=== PATIENT | female | born 1980 | race Caucasian/White ===

== ENCOUNTER → 2018-09-07 07:00 | Outpatient (CLI) | payer OTHER, SELFPAY ==
--- NOTE | 2018-09-07 07:00 | BI_ITS ---
MAMMOGRAPHY - BILATERAL SCREENING REASON FOR EXAM: Female, 38 years old. Routine annual screening examination. PERTINENT HISTORY: Non-contributory. TECHNIQUE: Digital bilateral breast alexa (3D mammographic acquisition) in the CC and MLO projections. 2-D mediolateral oblique (MLO) and craniocaudad (CC) views of both breasts were obtained. CAD: Full Field Digital Mammography with Computer Added Detection was performed. COMPARISON: None. Baseline examination. FINDINGS: Breast Composition: There are scattered areas of fibroglandular density. There are no dominant masses or suspicious calcifications. No other significant abnormalities are identified. BI/SCREENING MAMM (CAD), BILAT IMPRESSION: Negative screening mammogram. Yearly followup mammogram recommended. (A) ASSESSMENT CATEGORY: BIRADS Category 1: Negative. A letter regarding these results will be sent to the patient by the facility within 30 days. Approximately 10% of breast cancers are not detected by mammography. A normal mammogram should not delay biopsy of a clinically suspicious abnormality. [id number] Electronically Signed: Ciro Mott MD at 9:04 EST Tel [phone], Service support ,
--- OUTSIDE RECORDS SUMMARY | 2018-10-24 05:36 | XMS RPT_ITS ---
:1980 Author Organization OHIP Care Team Providers Name Role Phone Jeane Fleming Attending Unavailable Héctor Wood Referring Unavailable Jeane Fleming Attending Unavailable Héctor Wood Referring Unavailable [facility] Employee Attending Unavailable Jeane Fleming Attending Unavailable Héctor Wood Primary Care Unavailable Jeane Fleming Attending Unavailable Héctor Wood Referring Unavailable PROBLEMS PROBLEMS DATE TYPE CONDITION / CODE ATTENDING STATUS SOURCE 10/12/2018 Unknown Z12.31 - Encounter BernadetteJeane Active [place]ri[place] for screening [facility] mammogram for [facility] malignant neoplasm Repository of breast / Z12.31(ICD-10) 07/14/2018 Unknown N39.0 - Urinary Bernadette, Jeane Active [place] tract infection, Community site not specified Hospital / N39.0(ICD-10) Repository 07/14/2018 Unknown R30.0 - Dysuria / Bernadette, Jeane Active Shahriar R30.0(ICD-10) [facility] Repository 06/24/2018 Unknown Z01.411 - Encounter [place] Active [place] for gynecological [facility] examination Hospital (general) (routine) Repository with abnormal findings / Z01.411(ICD-10) 06/24/2018 Unknown N92.0 - Excessive Bernadette, Jeane Active [place] and frequent Community menstruation with Hospital regular cycle / Repository N92.0(ICD-10) PROCEDURES PROCEDURES No Procedure Records FoundRESULTS RESULTS HOOP PUNCHER OFFICE VISIT Observed: 10/11/2018 Status: F Source: SHAHRIAR REPORT 4:31 PM [facility] REPOSITORY [facility] [address] [place] [address]. [address] [place] [address] OFFICE VISIT Date of Service: 06/24/18 MR#: [id number] Acct: [id number] Name: ESTEBAN BALL Rep #: [id number] : 1980 Provider: JAYLON Fleming Age/Sex: 38/F Location: [facility] Status: Signed with Addenda ADDENDUM by JAYLON Fleming on 10/11/18 at 1631 Addendum entered and electronically signed by HEATH Frank 10/11/18 16:31: Rectal exam was deferred. No masses palpated Assessment AND Plan Problems 1. Encounter for gynecological examination with abnormal finding Z01.411 2. Menorrhagia with regular cycle N92.0 Plan - HEATH Frank Completed breast and pelvic exam Reviewed diet and exercise Pap 2015 Mammogram ordered Contraception essure Change OCP to sprintec. Call after 3 months if heavy menses persist. Declines IUD. Would consider ablation. YVETTE BV and call only if positive RTO 1 year, prn with problems Jeane Fleming MICROELECTRONICS TECHNICIAN Orders Orders: Medications New: 10/11/18 1631 <Electronically signed by Jeane JOE> Date Jeane Fleming cc: * Signed Intake Vital Signs06/24/18 Height 5 ft 8 in 06/24/18 Weight: 196 lb 06/24/18 Body Mass Index (BMI) 29.7 06/24/18 Blood Pressure 136/92 H Intake Visit Reasons: ANNUAL Rabbet Operator Required: No Is patient in pain?: No Allergies No Known Allergies Allergy (Verified 06/24/18 13:26) Medications Lisdexamfetamine Dimesylate [Vyvanse] 70 mg PO DAILY 08/24/13 [History Confirmed 06/24/18] Escitalopram Oxalate [Lexapro] 20 mg PO DAILY #14 tab 08/01/15 [Rx Confirmed 06/24/18] bupropion HCl XL 300 mg 24 hr tablet, extended release 350 mg PO DAILY tab 06/24/18 [History Confirmed 06/24/18] norgestimate 0.25 mg-ethinyl estradiol 35 mcg tablet 1 tab PO QDAY #84 tab 06/24/18 [Rx Confirmed 06/24/18] Is last menstrual period known: No Post menopausal: No Patient : No : No PFSH Medical History Depression (Acute) ADHD (Acute) Surgical History Cubital tunnel syndrome on right (Resolved) History of removal of skin mole (Resolved) Family History Mother CVA (cerebral vascular accident) Hypertension Father Hyperlipidemia Melanoma Social History Smoking Status: Never smoker alcohol intake: current alcohol intake frequency: holidays/special occasions only substance use type: does not use caffeine: Yes what type of physical activity do you participate in: none seatbelt use: always do you feel safe at home: Yes additional social history: [employer]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 DatName GA/WeeksOutcome Route [facility] LocaProviderFOB e ht en ia tn Unknown Desiree-1 997 Unknown Radha -2002 HPI ANNUAL: Details: ESTEBAN BALL is a 38 year old who presents for annual exam. States menses slightly better with Aviane but will with clotting. [place] in amount of days. Also notes increased vaginal discharge Last PAP: 2016 History of abnormal PAP: no Last mammogram: baseline ordered Female Reproductive History Questions: Metorrhagia: Yes, Sexually active: Yes, Dyspareunia: No, PCB: No ROS Const Constitutional: Denies fatigue, weight gain or weight loss Cardio Card: Denies chest pain Resp Resp: Denies cough or shortness of breath with activity GI GI: Denies abdominal pain, constipation, change in stools, vomiting or bloating : Reports as per HPI; denies urinary frequency, pelvic pain, urinary urgency, vaginal discharge, vaginal itching, urinary incontinence or difficulty urinating Exam Const General: cooperative, healthy appearing, no acute distress, well developed Orientation: alert, oriented to person, oriented to place HENGA Head: normal to inspection Neck Neck: normal visual inspection Thyroid: thyroid normal Lymphatic: no lymphadenopathy noted Chest Breast inspection: normal inspection of the breasts, normal inspection of the axillae Breast palpation: normal palpation of the breasts, normal palpation of the axillae, no axillary lymphadenopathy Resp Effort AND Inspection: normal respiratory effort Auscultation: clear to auscultation bilaterally Cardio Rate: regular rate Rhythm: regular rhythm GI Palpation: soft, nontender, no masses Rectal Exam: mass, deferred External Female Exam: normal external appearance, normal appearance of the urethra Urethra: normal appearance of the urethra, normal palpation Speculum Exam - Vagina: normal appearance of the vagina, normal vaginal discharge Speculum Exam - Cervix: normal appearance of the cervix (YVETTE BV) Bimanual Exam- Vagina AND Uterus: normal bimanual exam, uterine size normal, uterine shape normal, uterus non-tender Bimanual Exam- Adnexa, other: normal adnexae, no adnexal masses, adnexae non-tender, pelvic support normal Pelvic Support: normal Neuro General: alert, oriented x3 Psych Affect: normal affect Assessment AND Plan Problems 1. Encounter for gynecological examination with abnormal finding Z01.411 2. Menorrhagia with regular cycle N92.0 Plan Completed breast and pelvic exam Reviewed diet and exercise Pap 2016 Mammogram ordered Contraception essure Change OCP to sprintec. Call after 3 months if heavy menses persist. Declines IUD. Would consider ablation. YVETTE BV and call only if positive RTO 1 year, prn with problems Jeane Fleming MICROELECTRONICS TECHNICIAN Orders Orders: Medications New: Coding Level of Care Code Off vis,est,prev 40-64yrs Diagnoses Encounter for gynecological examination with abnormal finding Z01.411 Gynecological examination findings: abnormal findings PRESENT Menorrhagia with regular cycle N92.0 Menorrahagia type: with regular cycle 06/24/18 1419 <Electronically signed by Jeane JOE> Date Jeane HERNANDEZC Cosigner Signature: Date (if applicable) CC: SCREENING MAMM (CAD), Observed: 09/07/2018 Status: F Source: SHAHRIAR [place] 6:57 AM [facility] REPOSITORY [facility] Imaging Services [address] [place] [address] SCREENING MAMM (CAD), BIL MR#: [id number] Acct: [id number] Name: ESTEBAN BALL Rep #: [id number] : 1980 F 38 From: Ciro Mott MD PCP: Héctor Wood MD Status: REG CLI Study: SCREENING MAMM (CAD), BILAT Date of Exam: 09/07/18 Exam# [id number] Ordering Dr: Jeane Fleming MAMMOGRAPHY - BILATERAL SCREENING REASON FOR EXAM: Female, 38 years old. Routine annual screening examination. PERTINENT HISTORY: Non-contributory. TECHNIQUE: Digital bilateral breast alexa (3D mammographic acquisition) in the CC and MLO projections. 2-D mediolateral oblique (MLO) and craniocaudad (CC) views of both breasts were obtained. CAD: Full Field Digital Mammography with Computer Added Detection was performed. COMPARISON: None. Baseline examination. FINDINGS: Breast Composition: There are scattered areas of fibroglandular density. There are no dominant masses or suspicious calcifications. No other significant abnormalities are identified. BI/SCREENING MAMM (CAD), BILAT IMPRESSION: Negative screening mammogram. Yearly followup mammogram recommended. (A) ASSESSMENT CATEGORY: BIRADS Category 1: Negative. A letter regarding these results will be sent to the patient by the facility within 30 days. Approximately 10% of breast cancers are not detected by mammography. A normal mammogram should not delay biopsy of a clinically suspicious abnormality. [id number] Electronically Signed: Ciro Mott MD at 9:04 EST Tel [phone], Service support , CC: JAYLON Fleming; Héctor Wood MD Adult Psychiatrist: Signed OFFICE VISIT REPORT Observed: 08/03/2018 Status: F Source: SHAHRIAR 3:45 PM [address] [place] [address] OFFICE VISIT Date of Service: 07/14/18 MR#: [id number] Acct: [id number] Patient: ESTEBAN BALL Rep #: [id number] : 1980 Provider: JAYLON Fleming Age/Sex: 38/F Location: [facility] Status: Signed Intake Vital Signs07/14/18 Height 5 ft 8 in Intake Visit Reasons: Urinary tract infection Rabbet Operator Required: No Is patient in pain?: Yes (Dysuria) Allergies No Known Allergies Allergy (Verified 07/14/18 13:32) Medications Lisdexamfetamine Dimesylate [Vyvanse] 70 mg PO DAILY 08/24/13 [History Confirmed 06/24/18] Escitalopram Oxalate [Lexapro] 20 mg PO DAILY #14 tab 08/01/15 [Rx Confirmed 06/24/18] bupropion HCl XL 300 mg 24 hr tablet, extended release 350 mg PO DAILY tab 06/24/18 [History Confirmed 06/24/18] norgestimate 0.25 mg-ethinyl estradiol 35 mcg tablet 1 tab PO QDAY #84 tab 06/24/18 [Rx Confirmed 06/24/18] ciprofloxacin 500 mg tablet 250 mg PO BID #6 tab 07/14/18 [Rx Confirmed 07/14/18] Post menopausal: No Patient : No Nurse's Note: Patient presents for dysuria. Clean catch obtained. + 10 dip back office. Per Jeane Fleming MICROELECTRONICS TECHNICIAN, ATB sent to [facility] pharmacy. Assessment AND Plan 1. Acute cystitis with hematuria N30.01 Plan Rx cipro Plan Detail Other Orders Orders: Other Medications New: 08/03/18 1545 <Electronically signed by Jeane Fleming NP-C> Date Jeane Fleming ICT TEACHER-C Cosigner Signature: Date (if applicable) CC: CBC W/DIFF, AUTOMATED Collected: 11/23/2017 Status: F Source: [place] 8:05 AM [facility] REPOSITORY TYPE CODE TESTS RESULT OUT OF RANGE REFERENCE UNITS LAB L100.1000 4.4-11.0 K/mm3 Normal WBC 6.6 LAB L100.1200 4.2-5.4 M/mm3 Normal RBC 4.58 LAB L100.1300 12.0-15.0 g/dl Normal HGB 13.6 LAB L100.1400 37-47 % Normal HCT 42.4 LAB L100.1500 81-99 fL Normal MCV 92.6 LAB L100.1600 27.0-32.0 pg Normal MCH 29.7 LAB L100.1700 32-36 g/gl Normal MCHC 32.1 LAB L100.1810 11.6-14.6 % Normal RDW CV 13.6 LAB L100.1820 35.1-43.9 fl High RDW SD 45.6 LAB L100.1900 150-450 K/mm3 Normal PLT 324 LAB L100.2000 6.2-12.0 fl Normal MPV 10.4 LAB L100.2100 47-70 % Normal NEUT% 59.2 LAB L100.2200 19-41 % Normal LY% 29.5 LAB L100.2300 0-10 % Normal MONO% 4.4 LAB L100.2400 0-5 % High EO% 6.5 LAB L100.2500 0-1 % Normal BASO% 0.2 LAB L100.2550 0.0-0.9 % Normal IM GRAN % 0.200 Result Comment: IG% - Immature Granulocytes (promyelocytes, myelocytes and metamyelocytes) > 1% indicates that a LEFT SHIFT is Present. LAB L100.2620 2.0-7.7 X10 3/uL Normal Absolute Neut 3.9 LAB L100.2720 0.83-4.51 X10 3/ul Normal Absolute Lymph 1.94 Performed By: #### L100.0100 #### [facility] [address] [place], [address] URINALYSIS, ROUTINE Collected: 11/23/2017 Status: F Source: SHARHIAR (DIPSTICK) 8:05 AM [facility] REPOSITORY Order Comment: How was Urine Obtained? CLEAN CATCH TYPE CODE TESTS RESULT OUT OF RANGE REFERENCE UNITS LAB L400.3000 Yellow COLOR Normal Yellow LAB L400.3050 Clear Normal CLARITY Sl. Cloudy LAB L400.3200 Normal mg/dl Normal GLUCOSE, UR Normal LAB L400.3300 Negative mg/dL Normal BILIRUBIN URINE Negative LAB L400.3400 Negative mg/dl Normal KETONE UR Negative LAB L400.3465 1.002-1.030 Normal SP.GR. DIPSTX 1.020 LAB L400.3550 5.0 - 8.0 pH UR Normal 6.0 LAB L400.3600 Negative mg/dl High PROT 15 DIPSTX LAB L400.3700 Normal mg/dl Normal UROBILI Normal LAB L400.3750 Negative Normal NITRITE UR Negative LAB L400.3780 Negative /ul High 25 OCCULT BLOOD-UR LAB L400.3800 Negative /ul High LEUK ESTERASE 500 Performed By: #### L400.2010 #### [facility] [address] [place], [address] COMPREHENSIVE METABOLIC Collected: 11/23/2017 Status: F Source: SHAHRIAR [facility] 8:05 AM [facility] REPOSITORY TYPE CODE TESTS RESULT OUT OF RANGE REFERENCE UNITS LAB L501.0100 74-106 mg/dL Normal GLU 77 Result Comment: Please note revised GLUCOSE reference range effective 2017. LAB L501.1000 7-18 mg/dL Normal BUN 10 LAB L501.1100 0.55-1.02 mg/dL Normal CREAT,SERUM 0.65 Result Comment: The validity of the calculated GFR AND GFRAA in patients over 70 years has not been determined. Clinical correlation is essential. LAB L501.1110 >60 mL/min Normal EST GFR 107 Result Comment: Non- GFR Calc LAB L501.1115 >60 mL/min Normal EST GFR - AA 130 Result Comment: GFR Calc LAB L501.1300 10-20 RATIO Normal BUN/CRE 15.3 LAB L501.1500 6.4-8.2 g/dL T Normal PROT 7.9 LAB L501.1800 3.2-5.0 g/dL Normal ALB 3.4 LAB L501.1950 2.2-4.2 g/dL High GLOB 4.5 LAB L501.2000 0.9-2.4 RATIO Low A/G 0.8 LAB L501.2200 8.5-10.1 mg/dL CA Normal 8.5 LAB L501.4100 15-37 U/L Low AST 12 LAB L501.4305 45-117 U/L Normal ALK P 90 LAB L501.4405 13-56 U/L Normal ALT 23 Result Comment: Please note revised ALT reference range effective 2017. LAB L501.4600 0.20-1.00 mg/dL Normal T BILI 0.40 LAB L501.5300 136-145 mmol/L Normal NA 140 LAB L501.5600 3.5-5.1 mmol/L Normal K 3.6 LAB L501.5900 98-107 mmol/L High CL 108 LAB L501.6100 21.0-32.0 mmol/L Normal CO2 26.0 LAB L501.6200 5-15 Normal GAP 6 Performed By: #### L500.4050, L500.4100 #### [facility] [address] [place], [address] LIPID PROFILE Collected: 11/23/2017 Status: F Source: SHAHRIAR 8:05 AM [facility] REPOSITORY TYPE CODE TESTS RESULT OUT OF RANGE REFERENCE UNITS LAB L501.4900 200 mg/dL High CHOL 219 Result Comment: <200 mg/dL Desirable 200-240 mg/dL Borderline >240 mg/dL High Risk LAB L501.5000 mg/dL High TRIG 222 Result Comment: The drugs N-Acetylcysteine and Metamizole may falsely depress this assay. Serum Triglycerides Reference Interval Normal <150 mg/dL Borderline high 150 - 199 mg/dL High 200 - 499 mg/dL Very High > or = 500 mg/dL LAB L501.6400 mg/dL Low HDL 39 Result Comment: The drugs N-Acetylcysteine and Metamizole may falsely depress this assay. Reference Range HDL <40 mg/dL Low HDL Cholesterol HDL >or= 60 mg/dL High HDL Cholesterol LAB L501.6500 0-130 mg/dL High LDL 136 LAB L501.6600 5-40 mg/dL High VLDL 44 Performed By: #### L500.4050, L500.4100 #### [facility] [address] [place], [address] ALLERGIES ALLERGIES DATE TYPE / CODE NAME / CODE REACTION SEVERITY SOURCE 07/14/2018 Drug No Known Unknown [facility] Allergy/4160 Allergies/F00 Hospital 80777(SNOMED 4597155(RXNOR Repository CT) M) ENCOUNTERS ENCOUNTERS ADMIT/DISCHARGE ACCOUNT ADMITTING ENCOUNTER LOCATION SOURCE NUMBER CLASS 09/07/2018 [id number] Ambulatory [place] 5 [facility] ing:OPBI Repository 07/14/2018/ [id number] Ambulatory BMSBuilding:B [place] 8 0 [facility] Repository 06/24/2018/ [id number] Ambulatory BMSBuilding:B [place] 8 8 [facility] Repository 01/28/2018 [id number] Ambulatory BMSBuilding:B Shahriar 9 [facility] Repository 11/23/2017 [id number] Ambulatory [place] 2 [facility] ing:OLS.[facility] Repository PAYERS PAYERS ENCOUNTER GUARANTOR PAYER SUBSCRIBER SOURCE 09/07/2018 ESTEBAN L Primary ESTEBAN L [place] [id number] Insurance:AETNAPolicy WAYDOB: [facility] [place] Number: [id number] [id number] Repository [address]Zaf: (330) Date:0149-04-23AD [phone] () [id number] LUCAS PALM [id number]: 09/07/2018 Secondary NOT GIVENUNK Shahriar Insurance:SELF PAY [facility] Number: Effective Repository Date:2018-06-30 07/14/2018 ESTEBAN L Primary ESTEBAN L [place] [id number] Insurance:AETNAPolicy [facility] [place]: [id number] [id number] Repository [address]Dqp: (330) Date:8182-40-28EF [phone] () [id number] LUCAS PALM [id number]: 07/14/2018 Secondary NOT GIVENUNK [place] Insurance:SELF PAY [facility] Number: Effective Repository Date:2018-07-14 06/24/2018 ESTEBAN L Primary ESTEBAN L [place] [id number] Insurance:AETNAPolicy WAYDOB: [facility] Number: [id number] [id number] Repository [address]Ors: (330) Date:6697-31-48GD [phone] () [id number] LUCAS PALM [id number]: 06/24/2018 Secondary NOT GIVENUNK [place] Insurance:SELF PAY [facility] Number: Effective Repository Date:2018-06-24 01/28/2018 Esteban L Primary Esteban L [place] [id number] Insurance:AETNAPolicy WayDOB: [facility] [place] Number: [id number] [id number] Repository [address]Usl: (330) Date:1190-22-43JE [phone] () [id number] LUCAS PALM [id number]: 01/28/2018 Secondary NOT GIVENUNK [place] Insurance:SELF PAY [facility] Number: Effective Repository Date:2018-01-26 11/23/2017 Esteban L Primary NOT GIVENUNK [place] [id number] Insurance:SELF PAY [place] Number: Effective Repository [id number]: (330) Date:2017-11-23 [phone] ()
== END ==
PROVIDERS: Family Provider Family Medicine; PCP Family Medicine; Visit Provider Nurse Practitioner Women's Health
DX: Z12.31 Encounter for screening mammogram for malignant neoplasm of breast (principal)
CPT/HCPCS: 77063; 77067

== ENCOUNTER → 2018-10-26 17:51 | Outpatient (CLI) | payer OTHER, SELFPAY ==
[2018-10-26 09:02] VITALS: BMI 30.2
== END ==
PROVIDERS: Family Provider Family Medicine; PCP Family Medicine; Referring Provider Nurse Practitioner Women's Health; Visit Provider Nurse Practitioner Women's Health
DX: R10.2 Pelvic and perineal pain (principal)
CPT/HCPCS: 87070; 87205

== ENCOUNTER → 2018-11-01 07:55 | Outpatient (CLI) | payer OTHER, SELFPAY ==
[2018-10-26 09:02] VITALS: BMI 30.2
--- NOTE | 2018-11-01 07:58 | US_ITS ---
STUDY: ULTRASOUND OF THE FEMALE PELVIS - COMPLETE REASON FOR EXAM: Female, 38 years old. Left-sided pelvic pain. Abnormal bleeding. History of ESSURE placement. LMP: October 15, 2018. TECHNIQUE: Transabdominal and Transvaginal TECHNICAL QUALITY: Adequate. COMPARISON: None. FINDINGS: The uterus is anteverted and is in a midline position. The uterus measures 8.4 cm x 5.0 cm x 4.1 cm. There is a Nabothian cyst of the cervix. The endometrium measures 4.0 mm in thickness, and is hyperechoic. There is no demonstrated endometrial mass. There is no demonstrated myometrial mass. I.U.D. - The patient does not have an I.U.D. The right ovary is visualized. The right ovary measures 2.6 cm x 2.4 cm x 1.1 cm. Follicles are seen within the ovary. There is no visualized right adnexal mass or complex lesion. There is normal arterial and normal venous vascularity. The left ovary is visualized. The left ovary measures 2.2 cm x 1.9 cm x 1.4 cm. Follicles are seen within the ovary. There is no visualized left adnexal mass or complex lesion. There is normal arterial and normal venous vascularity. There is no fluid in the cul-de-sac. The pre void volume of the bladder was 13 ml. Polycystic ovary disease: No. US/Transvaginal Non- IMPRESSION: Normal female pelvis. Electronically Signed: Ciro Mott MD at 14:12 EST , Service support ,
== END ==
PROVIDERS: Family Provider Family Medicine; PCP Family Medicine; Referring Provider Nurse Practitioner Women's Health; Visit Provider Nurse Practitioner Women's Health
DX: R10.2 Pelvic and perineal pain (principal)
CPT/HCPCS: 76830; 93976

== ENCOUNTER 2018-12-30 08:22 | Day surgery (SDC) | payer OTHER, SELFPAY ==
[2018-10-26 09:02] VITALS: BMI 30.2
[2018-12-07 11:46] VITALS: BMI 30.2
[2018-12-27 08:01] LABS: Hematocrit 44.5 % (37-47); Hemoglobin 14.8 g/dl (12.0-15.0); Mean Corp Hgb Conc 33.3 g/gl (32-36); Mean Corpuscular Hgb 29.6 pg (27.0-32.0); Mean Platelet Vol. 9.8 fl (6.2-12.0); Platelet Count 330 K/mm3 (150-450); RBC Distribution Width CV 12.8 % (11.6-14.6); RBC Distribution Width SD 41.5 fl (35.1-43.9); White Blood Count 9.1 K/mm3 (4.4-11.0)
[2018-12-27 08:03] LABS: Scan Indicated on CBC? Y/N NO
[2018-12-27 08:27] LABS: AST(SGOT) 11 U/L (15-37); Alanine Aminotransfer ALT/SGPT 16 U/L (13-56); Albumin, Serum 3.5 g/dL (3.2-5.0); Alkaline Phosphatase 115 U/L (45-117); Bilirubin, Direct 0.11 mg/dL (0.00-0.30); Globulin 4.1 g/dL (2.2-4.2); Protein, Total 7.6 g/dL (6.4-8.2)
[2018-12-27 08:39] LABS: International Normalized Ratio 1.1; Prothrombin Time (Protime)PT. 13.7 SECONDS (11.7-14.9)
[2018-12-27 08:40] LABS: Partial Thromboplast Time 28.6 Seconds (24.1-36.2)
[2018-12-30] VITALS (14 sets, daily range): BP systolic 93–127; BP diastolic 58–77; PULSE 51–73; RESP 16–20; TEMP 36.4–37.2; O2SAT 97–100; BMI 29.5
--- NOTE | 2018-12-30 08:05 | HP.PCM_ITS ---
- Problem List (1) ADHD Status: Acute (2) Depression Status: Acute (3) Abnormal uterine bleeding Status: Chronic (4) Chronic female pelvic pain Status: Chronic Comment: plan TVH BS History and Physical Date of Admission: 12/30/18 Intake Vital Signs 12/07/18 Body Mass Index (BMI) 30.2 12/07/18 Height 5 ft 7 in 12/07/18 Weight: 194 lb 2 oz 12/07/18 Body Mass Index (BMI) 30.4 12/07/18 Blood Pressure 106/64 Intake Visit Reasons: pre op TVHBS ERAS Chief Complaint: Pre Op TVHBS ERAS Pension Examiner Required: No Is patient in pain?: No Allergies No Known Allergies Allergy (Verified 12/07/18 11:45) Medications Lisdexamfetamine Dimesylate [Vyvanse] 70 mg PO DAILY 08/24/13 [History Confirmed 12/07/18] Escitalopram Oxalate [Lexapro] 20 mg PO DAILY #14 tab 08/01/15 [Rx Confirmed 12/07/18] bupropion HCl XL 300 mg 24 hr tablet, extended release 350 mg PO DAILY tab 06/24/18 [History Confirmed 12/07/18] norgestimate 0.25 mg-ethinyl estradiol 35 mcg tablet 1 tab PO QDAY #84 tab 06/24/18 [Rx Confirmed 12/07/18] lisinopril 40 mg tablet 40 mg PO DAILY 12/07/18 [History Confirmed 12/07/18] Is last menstrual period known: No Post menopausal: No Patient : No : No [facility] Medical History Depression (Acute) ADHD (Acute) Encounter for Essure implantation (Acute) Hypertension (Chronic) Surgical History Cubital tunnel syndrome on right (Resolved) History of removal of skin mole (Resolved) Family History Mother CVA (cerebral vascular accident) Hypertension Father Hyperlipidemia Melanoma Social History Smoking Status: Never smoker alcohol intake: current alcohol intake frequency: holidays/special occasions only substance use type: does not use caffeine: Yes what type of physical activity do you participate in: none seatbelt use: always do you feel safe at home: Yes 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 She was referred for hysterectomy by Jeane Fleming for chronic pelvic pain. she samuels s had the essure in the past and also has AUB that is improved but not completely controlled with OCP and the patient wants to proceed with hysterectomy for definitive treatment, and wants tube and essure removal. Pregancy History 3 Elective abortions Hx Para 2 Spontaneous abortions Hx # Term Pregnancies Ectopic pregnancies Hx # Pregnancies Multiple births # of living children Past Pregnancies Del. Date Name GA/Weeks Outcome Route Bth Weight Infant Gen Labor Lgth Anesthesia Del Locatn Provider FOB Unknown Desiree-1996 Unknown Radha-2002 ROS Const Constitutional: Denies fatigue, fever(s), headache(s), increased appetite, poor appetite, weight gain or weight loss Cardio Card: Denies chest pain Resp Resp: Denies cough or dyspnea GI GI: Reports as per HPI; denies abdominal pain, constipation, nausea or vomiting : Reports as per HPI; denies difficulty urinating, painful urination, nipple discharge, urinary frequency, urinary incontinence, urinary hesitancy, urinary urgency, vaginal discharge, vaginal dryness, vaginal odor or vaginal itching Skin Skin/Breast: Denies change in hair, breast lump, breast pain, breast skin ch anges or nipple discharge Exam Const General: cooperative, healthy appearing, comfortable, no acute distress, well developed Nutritional Appearance: average body habitus Orientation: alert HENMT Head: normal to inspection, normocephalic Neck Neck: normal visual inspection, trachea midline Thyroid: thyroid normal Resp Effort & Inspection: normal respiratory effort GI Inspection: normal to inspection, non-distended Palpation: soft, no hepatosplenomegaly General: bladder normal to palpation External Female Exam: normal external appearance, normal appearance of the urethra Urethra: normal appearance of the urethra, normal palpation, no discharge Speculum Exam - Vagina: normal appearance of the vagina, normal vaginal discharge Speculum Exam - Cervix: normal appearance of the cervix, nontender Bimanual Exam- Vagina & Uterus: normal bimanual exam, uterine size normal, bladder normal to palpation, uterine shape normal, No cervical tenderness, uterine mobility normal, uterine consistency normal, normal cervical palpation, uterus non-tender Bimanual Exam- Adnexa, other: normal adnexae, adnexae mobile, no adnexal masses, pelvic support normal Pelvic Support: normal Skin General: no rashes or lesions noted Assessment & Plan Problems 1. Chronic female pelvic pain R10.2; G89.29 plan TVH BS 2. Abnormal uterine bleeding N93.9 Plan discussed surgical risks including risks of anesthesia, infection, bleeding, injury to bowel, bladder or blood vessels, and patient wishes to proceed with surgery. proceed with TVH BS Coding Level of Care Code No Charge Diagnoses Chronic female pelvic pain R10.2; G89.29 Abnormal uterine bleeding N93.9 UPDATE- I have seen the patient and performed any clinically relevant updates to the history and physical exam. Veronica Burch MD
[2018-12-30 08:48] LABS: Internal QC Validated? YES +Cl - CLEAR BKGD; Pregnancy, Urine Negative Negative
[2018-12-30 08:50] LABS: Bedside Glucose 70 mg/dL (70-110)
[2018-12-30] MEDS: Gabapentin 600 MG Tablet PO (08:55)
[2018-12-30] MEDS: Acetaminophen 500 MG Tablet 1000 MG PO ×2 (08:56→19:08)
[2018-12-30] MEDS: Celecoxib 200 MG Capsule 400 MG PO (08:56)
[2018-12-30] MEDS: Phenazopyridine 95 MG Tablet 190 MG PO (08:57)
[2018-12-30] MEDS: Scopolamine 1mg/72hr Patch 1 PATCH TRANSDERM. (08:57)
[2018-12-30] MEDS: Enoxaparin 40 MG/0.4 ML Syringe SC (08:58)
[2018-12-30] MEDS: Lactated Ringers 1,000 ML 40 ML IV (09:28)
[2018-12-30] MEDS: Magnesium Sulfate 4gm/100mL 4 GM/100 ML IV.SOLN. IV (09:29)
--- NOTE | 2018-12-30 10:35 | UT_PTH ---
PATIENT: ESTEBAN BALL LOC: [facility] U#:[id number] AGE/SX: 38/F ROOM: RE12/30/[address]: Dr. Veronica Burch MD : 1980 BED: DIS: 12/31/2018 SPEC #: [id number] RECD: 12/30/18 13:02 STATUS: BLANCA JUSTINE #: [id number] ELISABETH: 12/30/18 10:[address]: Veronica Burch DEPT: SURGICAL PATHOLOGY RECD BY: Simone Espitia ENTERED: 12/30/18 13:21 SP TYPE: UTERUS OTHR DR: Dr. Héctor Wood MD Tissues: Uterus, NOS Procedures: Surgery Specimen Level V HEADER OPERATION: ERAS, hysterectomy, vaginal, salpingectomy PRE-OP DIAGNOSIS: Chronic pelvic pain, abnormal uterine bleeding TISSUE SUBMITTED: Uterus and bilateral fallopian tubes MICROSCOPIC DIAGNOSIS Uterus and bilateral fallopian tubes, vaginal hysterectomy and salpingectomy: Cervix - chronic cervicitis. Endometrium - secretory pattern. Myometrium - adenomyosis with cystic change. Fallopian tubes - benign paratubal cysts. CE:kalee 12/31/18 MICROSCOPIC DESCRIPTION Slides are reviewed. GROSS DESCRIPTION Received in fixative is one container labeled with the patient's name and designated uterus and bilateral fallopian tubes. The specimen consists of a hysterectomy specimen consisting of uterus with cervix and detached bilateral fallopian tubes. The uterus with cervix weighs 89 gm and measures 9 x 6 x 4 cm. The serosal surface is walker, glistening. The ectocervical mucosa is unremarkable. The external os is oval and patulous in contour. The endocervical canal measures 3 cm in length and the endocervical mucosa is walker, glistening and unremarkable. Sections of the cervix reveal two cysts filled with mucoid material. The triangular endometrial cavity measures 4.5 cm in length and 3 cm in width. The endometrium is walker, glistening without any mass lesion and measures 0.1 cm in thickness. Sections of the uterine wall do not reveal any mass lesion and measures up to 2.5 cm in thickness. At both cornu, the uterus and proximal portion of the bilateral fallopian tubes are also noted and shows a coiled metallic device consistent with Essure device. The detached fallopian tubes are not identified as right or left. One of the fallopian tubes measure 7 cm in length and up to 1 cm in diameter. The fimbrial end is identified. A paratubal cyst is noted measuring 0.5 cm in greatest dimension. It s filled with clear fluid. The second fallopian tube measures 7 cm in length and up to 1 cm in diameter. It is similar appearance to the first one. Sections reveal unremarkable cut surfaces. Sections of one of the fallopian tube also reveals a coiled metallic device consistent with Essure device. Headlight Assembler sections are submitted in eight cassettes as follows: 1 - anterior cervix, 2 - posterior cervix, 3 & 4 - anterior uterine wall, 5 & 6 - posterior uterine wall, 7 & 8 - bilateral fallopian tubes with each cassette containing one fallopian tube. / VERA:kalee 12/30/18 TC:3 CPT: 36620
--- NOTE | 2018-12-30 10:44 | PCM.OPRPT ---
Problem List (1) ADHD Status: Acute (2) Depression Status: Acute (3) Abnormal uterine bleeding Status: Chronic (4) Chronic female pelvic pain Status: Chronic Comment: plan TVH BS Report of Operation Date of Procedure: 12/30/18 Pre-Operative Diagnosis: pelvic pain Post-Operative Diagnosis: same Surgery/Procedure Performed:: tv bs Description of Surgical Findings:: normal uterus nodular fibrosed tubes pharmacy clinical specialist: Lyn Mendez Type of Anesthesia:: General Specimen's removed: uterus tubes essure devices Drains: kolb Estimated Blood Loss (mL): 100 Fluids Replaced: crystalloid Description of Procedure: Patient was taken to the operating room and was placed under general anesthesia was prepped and draped in normal sterile fashion in the dorsal lithotomy position. Preoperative antibiotics and SCDs and Kolb catheter was placed inside the bladder. Weighted speculum was placed in the vagina and the anterior and posterior lip of the cervix was grasped with 2 Johny clamps and circumferentially injected with dilute vasopressin. A circumferential incision was made with a scalpel and the posterior cul-de-sac was entered into sharply and a longneck speculum was placed. The anterior cul-de-sac was also dissected down and entered into sharply and the uterosacral ligaments were clamped cut and suture ligated bilaterally followed by the cardinal ligaments which were Clamped cut and suture ligated bilaterally with 0 Monocryl. The uterus serially descended and progressive bites were taken bilaterally up to the level of the utero-ovarian ligament bilaterally which was clamped transected and double ligated with 0 Monocryl suture and 0 Vicryl free tie. Bilateral fallopian tubes and ovaries were well visualized and noted be within normal limits and the bilateral fallopian tubes were transected across the base with a Anuradha clamp and removed and sutured with 0 Vicryl suture. Excellent hemostasis was noted. Posterior peritoneum was reapproximated with 2-0 Vicryl and a modified Kitchen stitch was placed through the posterior vaginal cuff and bilateral uterosacral ligaments across the posterior cul-de-sac skimming along to provide apical support to the vagina. The vagina was closed with [id number] 0 Vicryl pop offs including the posterior and anterior peritoneum in the reapproximation. Excellent hemostasis was noted. All instruments removed from the vagina clear urine was noted at the end of the procedure and patient was awoken and taken recovery in stable condition. Grafts/Implants Used: none - Complications none - Admit VTE Documentation VTE Present on Admission: No VTE Mechan Device Prophylaxis: SCD's VTE Pharm Prophylaxis ordered?: Yes
--- NOTE | 2018-12-30 10:49 | PCM.DC.VHY ---
Discharge Diet: No Restrictions Discharge Activity: Return to Normal Activity, May Not Drive, May Shower May resume sexual activity in: 6-8 weeks Call your doctor if your incision/area has: Continuous Slow Oozing, Sudden Increased Bleeding, Increased Pain/ Swelling, Increased Redness, Foul Smelling Discharge Call your doctor if you observe: Fever of 101 or Higher, Inability to urinate, Inability to have a bowel movement, Using more than one pad per hour Allergies/Adverse Reactions: Allergies No Known Allergies Allergy (Verified 12/23/18 13:11) Medications to take at Discharge Lisdexamfetamine Dimesylate [Vyvanse] 70 mg PO DAILY 08/24/13 bupropion HCl XL 300 mg 24 hr tablet, extended release 350 mg PO QHS tab 06/24/18 lisinopril 40 mg tablet 40 mg PO BID 12/07/18 Escitalopram Oxalate [Lexapro] 20 mg PO QHS 12/23/18 Naproxen [Naprosyn] 250 - 500 mg PO Q8H PRN PRN #30 tablet 12/30/18 Oxycodone HCl/Acetaminophen [Percocet 5-325] 1 - 2 tablet PO Q4H PRN PRN 7 Days #15 tablet 12/30/18 The following prescriptions were given: Oxycodone HCl/Acetaminophen [Percocet 5-325] 1 - 2 tablet PO Q4H PRN PRN 7 Days #15 tablet PRN Reason: Pain Naproxen [Naprosyn] 250 - 500 mg PO Q8H PRN PRN #30 tablet PRN Reason: MILD PAIN Orders to be completed after discharge: Type & Screen Time Frame: 12/23/18, Facility: [facility], Location: Laboratory Partial Thromboplast Time Time Frame: 12/23/18, Location: Laboratory CBC-Complete Blood Cnt No Diff Time Frame: 12/23/18, Location: Laboratory Liver Profile Time Frame: 12/23/18, Location: Laboratory Prothrombin Time w/INR Time Frame: 12/23/18, Location: Laboratory Primary Care Physician: Héctor Wood MD [Primary Care Provider] - Test Results: Test results from this visit will be discussed in further detail at your follow-up appointment, if applicable. Please Follow Up With: Veronica Burch MD - [phone]
[2018-12-30] MEDS: Vasopressin 20 UNITS/ML Vial (11:02)
[2018-12-30] MEDS: Ondansetron 4 MG/2 ML Vial IV (12:30)
[2018-12-30 16:10] LABS: Hematocrit 40.2 % (37-47); Hemoglobin 13.4 g/dl (12.0-15.0); Mean Corp Hgb Conc 33.3 g/gl (32-36); Mean Corpuscular Hgb 29.9 pg (27.0-32.0); Mean Corpuscular Volume 89.7 fL (81-99); Mean Platelet Vol. 9.6 fl (6.2-12.0); Platelet Count 269 K/mm3 (150-450); RBC Distribution Width CV 12.6 % (11.6-14.6); RBC Distribution Width SD 40.9 fl (35.1-43.9); Red Blood Count 4.48 M/mm3 (4.2-5.4); White Blood Count 15.4 K/mm3 (4.4-11.0)
[2018-12-30 16:12] LABS: Scan Indicated on CBC? Y/N NO
[2018-12-30] MEDS: oxyCODONE 5 MG Tablet PO ×2 (17:42→22:20)
[2018-12-30] MEDS: Ketorolac 30 MG/ML Syringe IV (17:42)
[2018-12-30] MEDS: 0.9% NaCl Peripheral Flush Adult/Peds IV (19:08)
[2018-12-30] MEDS: Lactated Ringers 1,000 ML 70 ML IV (22:15)
[2018-12-30] MEDS: Docusate Sodium 100 MG Capsule PO (22:15)
[2018-12-30] MEDS: buPROPion (XL) 300 MG TABLET.XL PO (22:16)
[2018-12-30] MEDS: Escitalopram Oxalate 20 MG Tablet PO (22:16)
[2018-12-30] MEDS: Lisinopril 40 MG Tablet PO (22:16)
[2018-12-31] MEDS: Ketorolac 30 MG/ML Syringe IV ×2 (00:26→06:07)
[2018-12-31] MEDS: Acetaminophen 500 MG Tablet 1000 MG PO ×2 (00:27→06:06)
[2018-12-31 02:17] VITALS: BP 101/67; PULSE 81; RESP 18; TEMP 36.9; O2SAT 97
[2018-12-31 07:20] VITALS: O2SAT 95
--- NOTE | 2018-12-31 07:29 | PCM.PN.OB ---
Subjective: doing well no complaints - Physical Exam General: Alert, Oriented x3 Vital Signs Temp Pulse Resp BP Pulse Ox 98.5 F 81 18 101/67 97 12/31/18 02:17 12/31/18 02:17 12/31/18 02:17 12/31/18 02:17 12/31/18 02:17 Oxygen Flow Rate (L/min) 6 Oxygen Delivery Method Room Air Weight: 194 lb 0.108 oz Body Mass Index (BMI) 29.5 Intake and Output for Last 24 Hours 12/29/18 12/30/18 12/31/18 23:59 23:59 23:59 Intake Total 1999 / 1999 1640 / 1640 Output Total 250 / 250 530 / 530 Balance 1750 / 1750 1110 / 1110 Laboratory Tests Past 24 Hrs 12/30/18 12/30/18 08:30 15:45 WBC 15.4 H RBC 4.48 Hgb 13.4 Hct 40.2 MCV 89.7 MCH 29.9 MCHC 33.3 RDW 12.6 RDW Differential 40.9 Plt Count 269 MPV 9.6 Urine Test Negative POC Glucose 12/30/18 08:48 POC Glucose 70 Medical Necessity - Tobacco Use Smoking Status: Former smoker Tobacco Use: Non-smoker Assessment/Plan All Active Problems (Last Updated 12/07/18 @ 12:07 by Veronica Burch MD) Depression (Acute) ADHD (Acute) s/p tvh bs routine care dc home today
[2018-12-31 08:10] VITALS: BP 102/57; PULSE 80; RESP 16; TEMP 36.8; O2SAT 98
== END 2018-12-31 10:17 | disposition home or self-care (01) ==
LOC: SDC 08:23 → AC 08:24 → MS3 18:16
PROVIDERS: Family Provider Family Medicine; PCP Family Medicine; Referring Provider Obstetrics & Gynecology; Visit Provider Obstetrics & Gynecology
PROC: (CPT 58260; principal; 2018-12-30 10:15)
DX: N72 Inflammatory disease of cervix uteri (principal); N80.0 Endometriosis of uterus; N83.8 Other noninflammatory disorders of ovary, fallopian tube and broad ligament; R10.2 Pelvic and perineal pain; G89.29 Other chronic pain; N93.9 Abnormal uterine and vaginal bleeding, unspecified; F90.9 Attention-deficit hyperactivity disorder, unspecified type; F32.9 Major depressive disorder, single episode, unspecified; E78.00 Pure hypercholesterolemia, unspecified; Z79.899 Other long term (current) drug therapy; Z87.891 Personal history of nicotine dependence
CPT/HCPCS: 58262; 36415; 80076; 81025; 82962; 85027; 85610; 85730; 86850; 86900; 88307; 94762; J7120; A4216; J2405

== ENCOUNTER → 2019-07-08 08:24 | Outpatient (CLI) | payer OTHER, SELFPAY ==
[2019-02-11 10:27] VITALS: BMI 29.5
--- NOTE | 2019-07-08 09:24 | NEURO ---
NCS and/or EMG Patient Report HPI: Patient is a 39-year-old female who presented with complain of numbness, tingling and pain in her hand fourth and fifth digits and radiating to the elbow. 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 Patient has a history of right ulnar nerve surgery at right elbow. Patient had an EMG/ nerve conduction studies of right upper extremity done in 2012 which showed a mild ulnar neuropathy for which she had right ulnar nerve surgery. she was asymptomatic for a while but started having right arm numbness, tingling and pain in last few months. Patient does not have a history of diabetes. Physical Exam: No tenderness noted at right wrist. Tinel's sign negative at right wrist. Mild sensory deficit in the right fourth and fifth digits. Scar on the right elbow well healed. Tinel's sign negative at right elbow. No tenderness at right elbow Findings: 1. Normal nerve conduction studies of right median and ulnar nerves. 2. Normal needle examination of right upper extremity. Impression: 1. Normal nerve conduction studies and electromyography examination of right upper extremity. 2. No electrodiagnostic evidence of right median or ulnar neuropathy. 3. Prior mild right ulnar neuropathy noted in nerve conduction studies from 2012 has resolved. Recommendation: 1. Patient is recommended to use right elbow and hand splints as much as possible. 2. Patient is recommended to avoid repetitive right hand movements and sleeping or leaning on the right elbow.
== END ==
PROVIDERS: Family Provider Family Medicine; PCP Family Medicine; Referring Provider Physician Assistant; Visit Provider Physician Assistant
DX: G56.21 Lesion of ulnar nerve, right upper limb (principal); R20.2 Paresthesia of skin
CPT/HCPCS: 95886; 95909

== ENCOUNTER → 2020-04-06 17:48 | Outpatient (CLI) | payer OTHER, SELFPAY ==
[2019-02-11 10:27] VITALS: BMI 29.5
== END ==
PROVIDERS: PCP Family Medicine; Referring Provider Family Medicine; Visit Provider Family Medicine
DX: Z20.828 Contact with and (suspected) exposure to other viral communicable diseases (principal)
CPT/HCPCS: 87635; G2023; U0003

== ENCOUNTER 2022-05-07 21:04 | Emergency (ER) | payer OTHER, SELFPAY ==
[2022-05-07 21:05] VITALS: BP 135/75; PULSE 82; RESP 14; TEMP 35.9; O2SAT 94; BMI 34.0
--- NOTE | 2022-05-07 21:20 | ED.VIS.LOWEX ---
HPI History of Present Illness Chief Complaint: Lower Extremity Injury Informant: patient Narrative Narrative: Injury left ankle in the garage while stepping down steps. Fall however no head injury. No paresthesias. Took ibuprofen prior to arrival. No other complaints. [facility] Medical History ADHD Depression Encounter for Essure implantation Hypertension Home Medications bupropion HCl 300 mg 24 hr tablet, extended release 300 mg PO QHS 06/24/18 [History Last Taken Unknown] lisinopril 40 mg tablet 40 mg PO BID 12/07/18 [History Last Taken 12/30/18 0700] escitalopram oxalate 20 mg tablet 20 mg PO QHS 12/23/18 [History Last Taken Unknown] Adderall 20 mg PO/SL ACHS 05/07/22 [History Last Taken Unknown] Allergy/AdvReac Type Severity Reaction Status Date / Time No Known Allergies Allergy Verified 05/07/22 21:05 Family History Mother CVA (cerebral vascular accident) Hypertension Father Hyperlipidemia Melanoma Surgical History Cubital tunnel syndrome on right History of removal of skin mole History of total vaginal hysterectomy (TVH) Social History Smoking Status: Former smoker alcohol intake: current alcohol intake frequency: holidays/special occasions only substance use type: does not use caffeine: Yes what type of physical activity do you participate in: none seatbelt use: always do you feel safe at home: Yes 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 [facility] ED Constitutional Constitutional ED: Denies chills, fever(s) or sweats Eyes Eyes: Denies change in vision ENT ENT ED: Denies dysphagia or sore throat Cardiovascular Cardiovascular: Denies chest pain, leg edema, palpitations or racing heartbeat Respiratory/Chest Respiratory/Chest: Denies cough, dyspnea or dyspnea on exertion Gastrointestinal Gastrointestinal: Denies abdominal pain, diarrhea, nausea or vomiting Genitourinary Genitourinary ED: Denies dysuria, hematuria or urinary frequency Musculoskeletal Musculoskeletal: Reports extremity pain and other Details: Left ankle injury ; Denies back pain or neck pain Integumentary Denies rash or wounds Neurologic Neurologic: Denies headache(s), paresthesias or weakness EXAM Physical Exam Const Vital Signs: 05/07/22 21:05 Temperature 96.7 F L Temperature Source Temporal Pulse Rate 82 Respiratory Rate 14 Blood Pressure 135/75 H Blood Pressure Mean 95 Pulse Ox 94 Oxygen Delivery Method Room Air Positive well nourished and well developed General Appearance ED: well developed and NAD HEENT Reports moist mucous membranes normocephalic and atraumatic Eyes PERRL, EOMs intact bilaterally and conjunctivae normal General Eye ED: Yes normal appearance of both eyes Neck no lymphadenopathy and supple General: Negative for tenderness Chest Wall Chest: Negative for tenderness Resp normal respiratory effort and normal air movement Effort and Inspection: symmetric chest movement; Negative for respiratory distress Cardio regular rate, regular rhythm and no murmurs Peripheral Pulses: pulses 2+ throughout GI normal to inspection, nondistended, normoactive bowel sounds and non-tender Palpation: Negative for guarding or rebound tenderness present Back/Spine no CVA tenderness and no thoracic nor lumbar tenderness Extremity Extremity Narrative: Left lower extremity negative logroll no knee tenderness. There is no medial or lateral malleoli tenderness. There is swelling lateral malleolus tenderness ATFL. No midfoot or proximal fifth base tenderness. Skin intact. Neurovascular intact. General Extremety ED: Negative for edema or tenderness General Extremity: Negative for edema Neuro oriented x3 and no sensory deficits noted Sensorium / Orientation: awake and alert Skin no rashes or lesions noted and no wounds MDM MDM MDM Narrative Medical decision making narrative: Patient clinically has a sprain with swelling on the ligaments. She had no bony tenderness. Baldwin positive due to unable to ambulate. X-ray 3 views of the right ankle reviewed by myself and read by radiology. There is no fractures the ankle. There was reported questionable lateral midfoot fracture per radiology, however clinically had no midfoot tenderness or proximal fifth base tenderness. She will continue ibuprofen every 6 hours next 2 days she will continue to ice and elevate. Ankle stirrup was provided for stability. She will follow-up as an outpatient. All questions were answered. Radiography Diagnostic Testing: Clinical Impression(s) from Imaging Studies Ankle X-Ray 05/07/22 21:25 IMPRESSION: No ankle soft tissue swelling without definite fracture. Questionable fracture lateral midfoot suggested on one view. Correlate clinically with physical exam and consider dedicated left foot x-rays. Electronically Signed: Félix Marianne, at 21:58 EDT , Discharge Plan Triage Chief Complaint: Lower Extremity Injury ED Provider: Ricardo Byrne Dx/Rx/DC Orders Clinical Impression: Left ankle sprain, Injury of ankle, left Instructions: ED Sprain Ankle W X Ray Prescriptions: No Action lisinopril 40 mg tablet 40 mg PO BID bupropion HCl 300 mg tablet extended release 24 hr 300 mg PO QHS escitalopram oxalate 20 MG tablet 20 mg PO QHS Adderall 20 mg PO/SL ACHS Primary Care Provider: Héctor Wood Referrals: Héctor Wood MD [Primary Care Provider] - 1 Week if not improving Activity Restrictions/Additional Instructions: X-rays negative. Use stirrup for stability. Continue ice. Ibuprofen 600 mg every 6 hours for the next 2 days then as needed. Disposition Disposition: Home, Self Care Discharge Date/Time: 05/07/22 22:20
--- NOTE | 2022-05-07 21:25 | RAD_ITS ---
INDICATION: injury EXAMINATION/TECHNIQUE: X-RAY - LEFT XR Ankle Min 3 Views 3 VIEWS COMPARISON: Left foot x-rays 05/28/2013. FINDINGS: SOFT TISSUES: Mild soft tissue swelling lateral ankle. No radiopaque foreign body. BONES/JOINTS: Intact distal tibia and fibula, and talus. On the posterior view the ankle, there is a questionable lucency involving lateral midfoot structure, potentially distal calcaneus or cuboid bone. This is only seen on one view and may be artifactual. Preservation of the joint space and no degenerative bony proliferative changes. No sclerotic or destructive changes observed. RAD/Ankle min 3 Views IMPRESSION: No ankle soft tissue swelling without definite fracture. Questionable fracture lateral midfoot suggested on one view. Correlate clinically with physical exam and consider dedicated left foot x-rays. Electronically Signed: Félix Lopes DO at 21:58 EDT ,
== END 2022-05-07 22:20 | disposition home or self-care (01) ==
PROVIDERS: Emergency Provider Emergency Medicine; PCP Family Medicine; Visit Provider Emergency Medicine
DX: S93.402A Sprain of unspecified ligament of left ankle, initial encounter (principal); I10 Essential (primary) hypertension; W10.9XXA Fall (on) (from) unspecified stairs and steps, initial encounter; Z87.891 Personal history of nicotine dependence; F90.9 Attention-deficit hyperactivity disorder, unspecified type; Z79.899 Other long term (current) drug therapy; F32.A Depression, unspecified
CPT/HCPCS: 73610; 99282

== ENCOUNTER → 2024-02-18 | Outpatient (CLI) | payer OTHER, SELFPAY | END | disposition home or self-care (01) | LOC: LABSPEC 13:57 | PROVIDERS: PCP Internal Medicine; Visit Provider Nurse Practitioner | DX: L02.412 Cutaneous abscess of left axilla (principal) | CPT/HCPCS: 87070; 87077; 87186; 87205 ==

== ENCOUNTER → 2024-07-25 | Outpatient (CLI) | payer OTHER, SELFPAY ==
[2024-07-25 16:47] LABS: Amphetamine Urine VISTA POSITIVE (<1000 ng/mL); Barbiturate Urine VISTA NEGATIVE (< 200 ng/mL); Benzodiazepine Urine VISTA NEGATIVE (< 200 ng/mL); Cocaine Urine VISTA NEGATIVE (< 300 ng/mL); Ecstacy Urine VISTA POSITIVE (< 500 ng/mL); Methadone Urine VISTA NEGATIVE (< 300 ng/mL); PCP Urine VISTA NEGATIVE (< 25 ng/mL); THC Urine VISTA NEGATIVE (< 50 ng/mL); Vista UDS pH Range 5
--- OUTSIDE RECORDS SUMMARY | 2024-07-25 18:54 | XMS RPT_ITS | CCD ---
Author Organization [facility] Inform ion Partnership [facility] Care Team Providers Care Fish Conservationist Name Role Phone Pcp, No Primary Care Provider Ainsley Tran Primary Care Provider Héctor Pena MD Primary Care Provider BRANDI WIGGINS (ELECTRONICS HARDWARE DESIGN ENGINEER) Attending Héctor Coates MD Primary Care Provider HÉCTOR LI Attending HÉCTOR Hill Primary Care HÉCTOR Hill Attending HÉCTOR Hill Primary Care HÉCTOR Hill Attending HÉCTOR Hill Primary Care Evangelist patino Allergies Allergy Classification Reported Allergen(s) Allergy Type Date of Onset Reaction(s) Facility (13 sources) Seasonal allergy; Translations: [SEASONAL ALLERGIES] Propensity to adverse reactions 06-20-2010 [facility] Medications Completed/Discontinued Medications Medication Drug Class(es) Dates Sig (Normalized) Sig (Original) amLODIPine 5 mg oral tablet (5 sources) Dihydropyridine Calcium Channel Mady take 1 tablet by mouth once daily amLODIPine (NORVASC) 5 mg tablet Take 5 mg by mouth once daily. 0 Active Comment on above: Take 5 mg by mouth o nce daily. 24 hr amphetamine aspartate 5 mg / amphetamine sulfate 5 mg / dextroamphetamine saccharate 5 mg / dextroamphetamine sulfate 5 mg extended release oral capsule (20 sources) Central Nervous System Stimulant Start: 06-11-2022 End: 11-08-2023 take 1 capsule by mouth once daily amphetamine-dextr oamphetamine XR (ADDERALL XR) 20 mg capsule Indications: ADHD (attention deficit hyperactivity disorder), inattentive type Take 1 capsule by mouth once daily for 30 days. Do not start before October 09, 2023. 30 capsule 0 10/09/2023 Active Comment on above: Take 1 capsule by mo uth once daily for 30 days. Take 1 capsule by mo uth once daily for 30 days. Do not start before July 11, 2022. Take 1 capsule by mo uth once daily for 30 days. Do not start before August 10, 2022. Take 1 capsule by mo uth once daily for 30 days. KEISHA (dispense as written per [facility]) Take 1 capsule by mo uth once daily for 30 days. Do not start before March 27, 2023. Take 1 capsule by mo uth once daily for 30 days. Do not start before April 26, 2023. Take 1 capsule by mo uth once daily for 30 days. Do not start before September 09, 2023. Take 1 capsule by mo ut once daily for 30 days. Do not start before October 09, 2023. ARIPiprazole 10 mg oral tablet (6 sources) Atypical Antipsychotic take 1 tablet by mouth once daily ARIPiprazole (ABILIFY) 10 mg tablet Take 10 mg by mouth once daily. 0 Active Comment on above: Take 10 mg by mouth once daily. ascorbic acid 500 mg extended release oral capsule (11 sources) Vitamin C Start: 03-11-2006 VITAMIN C 500 MG CAP Take one(1) tablet daily. 0 03/11/2006 Active Comment on above: Take one(1) tablet d aily. 24 hr buPROPion hydrochloride 300 mg extended release oral tablet (12 sources) Aminoketone Start: 03-24-2023 take 1 tablet by mouth once daily buPROPion XL (WELLBUTRIN XL) 300 mg 24 hr tablet Take 1 tablet by mouth once daily. 90 tablet 3 03/24/2023 Active Start: 09-13-2022 End: 09-13-2022 take 1 tablet by mouth once daily buPROPion XL (WELLBUTRIN XL) 300 mg 24 hr tablet TAKE 1 TABLET BY MOUTH EVERY DAY 90 tablet 3 09/13/2022 Active Comment on above: Take 300 mg by mouth once daily. TAKE 1 TABLET BY FABIAN TH EVERY DAY Take 1 tablet by fabian th once daily. ERGOCALCIFEROL, VITAMIN D2, (VITAMIN D ORAL) (6 sources) ERGOCALCIFEROL, VITAMIN D2, (VITAMIN D ORAL) Take by mouth. 0 Active Comment on above: Take by mouth. escitalopram 20 mg oral tablet (12 sources) Serotonin Reuptake Inhibitor Start: 3 take 1 tablet by mouth once daily escitalopram oxalate (LEXAPRO) 20 mg tablet Take 1 tablet by mouth once daily. 90 tablet 3 03/24/2023 Active Start: 09-13-2022 End: 09-13-2022 take 1 tablet by mouth once daily escitalopram oxalate (LEXAPRO) 20 mg tablet TAKE 1 TABLET BY MOUTH EVERY DAY 90 tablet 3 09/13/2022 Active Comment on above: Take 20 mg by mouth once daily. TAKE 1 TABLET BY FABIAN TH EVERY DAY Take 1 tablet by fabian th once daily. hydrocortisone 10 mg/ml topical cream (4 sources) Corticosteroid Start: 023 hydrocortisone (PROCTOCORT) 1 % cream Apply to affected area twice daily. 35 g 0 03/11/2023 Active Comment on above: Apply to affected ar ea twice daily. lisdexamfetamine dimesylate 70 mg oral capsule (1 source) Central Nervous System Stimulant Start: 010 End: 022 lisdexamfetamine dimesylate(VYVANSE 70 MG CAP) Take one(1) tablet daily. 0 06/20/2010 06/11/2022 Discontinued (Cost of medication) Comment on above: Take one(1) tablet d aily. lisinopril 40 mg oral tablet (5 sources) Angiotensin Converting Enzyme Inhibitor Start: 019 take 1 tablet by mouth once daily lisinopril (ZESTRIL) 40 mg tablet Take 1 tablet by mouth once daily. 0 12/07/2018 Active Comment on above: Take 1 tablet by fabian th once daily. metoprolol tartrate 50 mg oral tablet (5 sources) beta-Adrenergic Mady take 1 tablet by mouth twice daily metoprolol tartrate, short acting, (LOPRESSOR) 50 mg tablet Take 50 mg by mouth twice daily. 0 Active Comment on above: Take 50 mg by mouth twice daily. metroNIDAZOLE 500 mg oral tablet (6 sources) Nitroimidazole Antimicrobial Start: 016 take 1 tablet by mouth twice daily metroNIDAZOLE (FLAGYL) 500 mg tablet Take 1 tablet by mouth twice daily. FOR 7 DAYS. 14 tablet 0 06/03/2016 Active Comment on above: Take 1 tablet by fabian th twice daily. FOR 7 DAYS. OTC NUTRITIONAL SUPPLEMENT (11 sources) Start: 006 OTC NUTRITIONAL SUPPLEMENT Woman's one a day multi-vitamin, Take one(1) tablet daily. 0 03/11/2006 Active Comment on above: Woman's one a day mu lti-vitamin, Take one(1) tablet daily. rosuvastatin calcium 10 mg oral tablet (5 sources) HMG-CoA Reductase Inhibitor Start: 023 take 1 tablet by mouth once daily rosuvastatin (CRESTOR) 10 mg tablet TAKE 1 TABLET BY MOUTH EVERY DAY 90 tablet 3 03/24/2023 Active take 1 tablet by fabian th once daily at bedtime rosuvastatin (CRESTOR) 10 mg tablet Take 10 mg by mouth daily at bedtime. 0 Active Comment on above: Take 10 mg by mouth daily at bedtime. TAKE 1 TABLET BY FABIAN TH EVERY DAY simvastatin 20 mg oral tablet (6 sources) HMG-CoA Reductase Inhibitor Start: 06-20-2010 simvastatin(ZOCOR 20 MG TAB) Take one(1) tablet daily at bedtime. 0 06/20/2010 Active Comment on above: Take one(1) tablet d aily at bedtime. Problems Problem Classification Problem Date Documented Date Episodic/Chronic Adjustment disorders (11 sources) Adjustment disorder with depressed mood; Translations: [Adjustment disorder with depressed mood] 03-16-2007 Chronic Attention-deficit, conduct, and disruptive behavior disorders (3 sources) Attention deficit hyperactivity disorder, predominantly inattentive type; Translations: [Attention-deficit hyperactivity disorder, predominantly inattentive type] Chronic Attention-deficit, conduct, and disruptive behavior disorders (10 sources) Attention deficit hyperactivity disorder, combined type; Translations: [Attention-deficit hyperactivity disorder, combined type] Onset: 05-18-2017 06-18-2022 Chronic Attention-deficit, conduct, and disruptive behavior disorders (1 source) Attention-deficit hyperactivity disorder, predominantly inattentive type; Translations: [ADHD (attention deficit hyperactivity disorder), inattentive type] Onset: 08-10-2023 Chronic Disorders of lipid metabolism (12 sources) Hyperlipidemia; Translations: [Hyperlipidemia, unspecified] Onset: 08-10-2023 03-16-2007 Chronic Essential hypertension (1 source) Essential (primary) hypertension; Translations: [Hypertension, essential] Onset: 08-10-2023 Chronic Hemorrhoids (2 sources) External hemorrhoids; Translations: [Residual hemorrhoidal skin tags] Onset: 08-10-2023 Episodic Other screening for suspected conditions (not mental disorders or infectious disease) (1 source) Encounter for screening for diseases of the blood and blood-forming organs and certain disorders involving the immune mechanism; Translations: [Screening for deficiency anemia] Onset: 08-10-2023 Episodic Screening and history of mental health and substance abuse codes (1 source) Encounter for screening for depression; Translations: [Screening for depression] Onset: 08-10-2023 Episodic Unclassified (1 source) Rectal Problem Onset: 03-11-2023 Results Test Name Value Interpretation Reference Range Facility CBC/DIFF (OUTSIDE )on BASO ABS 0.0 K/uL 0 - 0.2 K/uL [facility] Basophils/100 WBC (Bld) 1 % [facility] EOS ABS 0.2 K/uL 0.1 - 0.3 K/uL [facility] Eosinophils/100 WBC (Bld) 3 % [facility] Hematocrit (Bld) [Volume fraction] 41.9 % 39 - 55 % [facility] Hemoglobin (Bld) [Mass/Vol] 13.9 g/dL Abnormal 14 - 16.5 g/dL [facility] Immature Gran % 0.0 % [facility] Lymphocytes (Bld) [#/Vol] 1.7 10*3/uL 1.2 - 4 K/uL [facility] Lymphocytes/100 WBC (Bld) 28 % [facility] MCH (RBC) [Entitic mass] 29.8 pG 27 - 34 pG [facility] MCHC (RBC) [Mass/Vol] 33.2 g/dL 30 - 36 g/dL [facility] MCV (RBC) [Entitic vol] 90 fL 79 - 98 fL [facility] MONO ABS 0.3 K/uL 0 - 1 K/uL [facility] Monocytes/100 WBC (Bld) 6 % [facility] NEUT ABS 3.8 K/uL 1.9 - 8 K/uL [facility] Neutrophils/100 WBC (Bld) 62 % [facility] Platelets (Bld) [#/Vol] 336 10*3/uL 140 - 440 K/uL [facility] RBC (Bld) [#/Vol] 4.66 10*6/uL 4 - 6 M/uL [facility] RDW 12.6 K/uL 11.7 - 15.4 K/uL [facility] WBC (Bld) [#/Vol] 6.1 10*3/uL 3.9 - 11 K/uL [facility] CMP EXTERNAL QAIon 3 Albumin [Mass/Vol] 4.4 g/dL [facility] Albumin/Globulin [Mass ratio] 1.6 {ratio} [facility] ALP [Catalytic activity/Vol] 86 U/L [facility] ALT [Catalytic activity/Vol] 9 U/L [facility] AST [Catalytic activity/Vol] 12 U/L [facility] Bilirubin [Mass/Vol] 0.4 mg/dL [facility] Calcium [Mass/Vol] 9.6 mg/dL [facility] Chloride [Moles/Vol] 103 mmol/L [facility] CO2 [Moles/Vol] 22 mmol/L [facility] Creatinine per volume 0.80 [facility] eGFR-All Other Races 93 [facility] Globulin, Total 2.7 [facility] Glucose [Mass/Vol] 89 mg/dL [facility] Potassium [Moles/Vol] 3.9 mmol/L [facility] Protein [Mass/Vol] 7.1 g/dL [facility] Sodium [Moles/Vol] 140 mmol/L [facility] Urea nitrogen [Mass/Vol] 11 mg/dL [facility] Urea nitrogen/Creatini ne [Mass ratio] 14 mg/mg 0 - 25 RATIO [facility] LIPID PANEL (OUTSIDE)on Cholesterol [Mass/Vol] 158 mg/dL [facility] Cholesterol in HDL [Mass/Vol] 30 mg/dL Abnormal [facility] Cholesterol in LDL [Mass/Vol] 80 mg/dL [facility] Triglyceride [Mass/Vol] 292 mg/dL High [facility] VLDL Cholesterol [address] [facility]NP[facility] 08-28-2023 CNPN Telephone ([id number]) ----- ESTEBAN BALL ([id number]) 1980 F Date Time Provider Department 08/28/23 [facility] PROVIDER [id number] During your visit today, we recorded the following information about you: Deyanira Meyers 08/28/2023 12:16 PM Signed I called Isela back regarding scheduling an appointment for her Hemorrhoids. She wanted something in [place] or vicinity. I advised her to contact Dr. Li's office to find surgeon closer to home. Patient states will be on [employer] after the first of the year. Allergies As of Date: 08/28/2023 Noted Allergy Reaction SEASONAL ALLERGIES 06/20/2010 Date Reviewed: 08/10/2023 Reviewed by: Lynette Krishnamurthy LPN - Fully Assessed Reason for Visit: Returning Patient's Call [[phone]] Cmt: Appointment Prescriptions as of 08/28/2023 - amphetamine-dextroampheta mine XR (ADDERALL XR) 20 mg capsule Take 1 capsule by mouth once daily for 30 days. - amphetamine-dextroampheta mine XR (ADDERALL XR) 20 mg capsule Take 1 capsule by mouth once daily for 30 days. Do not start before September 09, 2023. - amphetamine-dextroampheta mine XR (ADDERALL XR) 20 mg capsule Take 1 capsule by mouth once daily for 30 days. Do not start before October 09, 2023. - rosuvastatin (CRESTOR) 10 mg tablet TAKE 1 TABLET BY MOUTH EVERY DAY - escitalopram oxalate (LEXAPRO) 20 mg tablet Take 1 tablet by mouth once daily. - buPROPion XL (WELLBUTRIN XL) 300 mg 24 hr tablet Take 1 tablet by mouth once daily. - hydrocortisone (PROCTOCORT) 1 % cream Apply to affected area twice daily. - amphetamine-dextroampheta mine XR (ADDERALL XR) 20 mg 24 hr capsule Take 1 capsule by mouth once daily for 30 days. - amphetamine-dextroampheta mine XR (ADDERALL XR) 20 mg 24 hr capsule Take 1 capsule by mouth once daily for 30 days. Do not start before March 27, 2023. - lisinopril (ZESTRIL) 40 mg tablet Take 1 tablet by mouth once daily. - metoprolol tartrate, short acting, (LOPRESSOR) 50 mg tablet Take 50 mg by mouth twice daily. - amLODIPine (NORVASC) 5 mg tablet Take 5 mg by mouth once daily. - amphetamine-dextroampheta mine XR (ADDERALL XR) 20 mg 24 hr capsule Take 1 capsule by mouth once daily for 30 days. - amphetamine-dextroampheta mine XR (ADDERALL XR) 20 mg 24 hr capsule Take 1 capsule by mouth once daily for 30 days. Do not start before July 11, 2022. - OTC NUTRITIONAL SUPPLEMENT Woman's one a day multi-vitamin, Take one(1) tablet daily. - VITAMIN C 500 MG CAP Take one(1) tablet daily. Problem List As Of Date 08/28/2023 Noted Resolved ADJUSTMENT DISORDER WITH DEPRESSED MOOD [F43.21] HYPERLIPIDEMIA NEC/NOS [E78.5] Attention deficit hyperactivity disorder (ADHD)*05/18/2017 Encounter Status:Closed by DEYANIRA MEYERS on 08/28/23 [facility] Cherie 08-11-2023 [facility] Telephone ([employer]) ----- ESTEBAN BALL ([id number]) 1980 F Date Time Provider Department 08/11/23 HÉCTOR LI During your visit today, we recorded the following information about you: Chrisyt Clayton MA 08/11/2023 6:02 AM Signed PENDING, ADDERALL XR 20 mg PA submitted in Epic Christy Clayton MA August 11, 2023 6:01 AM Christy Clayton MA 08/11/2023 7:41 AM Signed APPROVED, ADDERALL XR 20 mg Authorized from August 11, 2023 to August 10, 2024 Christy Clayton MA August 11, 2023 7:40 AM Allergies As of Date: 08/11/2023 Noted Allergy Reaction SEASONAL ALLERGIES 06/20/2010 Date Reviewed: 08/10/2023 Reviewed by: Lynette Krishnamurthy LPN - Fully Assessed Reason for Visit: APPROVED, ADDERALL XR 20 mg [Other] Prescriptions as of 08/11/2023 - amphetamine-dextroampheta mine XR (ADDERALL XR) 20 mg capsule Take 1 capsule by mouth once daily for 30 days. - amphetamine-dextroampheta mine XR (ADDERALL XR) 20 mg capsule Take 1 capsule by mouth once daily for 30 days. Do not start before September 09, 2023. - amphetamine-dextroampheta mine XR (ADDERALL XR) 20 mg capsule Take 1 capsule by mouth once daily for 30 days. Do not start before October 09, 2023. - rosuvastatin (CRESTOR) 10 mg tablet TAKE 1 TABLET BY MOUTH EVERY DAY - escitalopram oxalate (LEXAPRO) 20 mg tablet Take 1 tablet by mouth once daily. - buPROPion XL (WELLBUTRIN XL) 300 mg 24 hr tablet Take 1 tablet by mouth once daily. - hydrocortisone (PROCTOCORT) 1 % cream Apply to affected area twice daily. - lisinopril (ZESTRIL) 40 mg tablet Take 1 tablet by mouth once daily. - metoprolol tartrate, short acting, (LOPRESSOR) 50 mg tablet Take 50 mg by mouth twice daily. - amLODIPine (NORVASC) 5 mg tablet Take 5 mg by mouth once daily. - OTC NUTRITIONAL SUPPLEMENT Woman's one a day multi-vitamin, Take one(1) tablet daily. - VITAMIN C 500 MG CAP Take one(1) tablet daily. Problem List As Of Date 08/11/2023 Noted Resolved ADJUSTMENT DISORDER WITH DEPRESSED MOOD [F43.21] HYPERLIPIDEMIA NEC/NOS [E78.5] Attention deficit hyperactivity disorder (ADHD)*05/18/2017 Encounter Status:Closed by CHRISTY CLAYTON on 08/11/23 [facility] Shayna 08-10-2023 [facility] Office Visit ([facility] ) ----- ESTEBAN BALL ([id number]) 1980 F Date Time Provider Department 08/10/23 1:30 PM HÉCTOR LI During your visit today, we recorded the following information about you: Temperature Pulse Respiration Blood pressure 97.6 degrees 68/minute 18/minute 138/82 Weight Height 95.3 kg 1.715 m Lynette Krishnamurthy LPN 08/10/2023 7:48 PM Signed Patient in the office today for an annual Wellness exam. Health Maintenance Due: Hepatitis B Vaccine(1 of 3 - 3-dose series) declined Covid-19 Vaccine(1) declined Hepatitis C Screening declined HIV Screening declined DTaP,Tdap,Td Vaccine(1 - Tdap) declined Pap Testing Dr. Rosalie Bess HPV Testing Dr. Rosalie Bess Mammogram Screening Dr. Rosalie Bess Lipid Screening Diabetes Screening Colorectal Cancer Screening Lynette Krishnamurthy LPN August 10, 2023 1:49 PM Héctor Li MD 08/10/2023 7:48 PM Signed Subjective Esteban Ball is a 43 year old female. She presents today for her annual wellness visit. She reports she is still having symptoms from her external hemorrhoids. She is requesting referral to general surgery for excision Review of Systems Constitutional: Negative. HENT: Negative. Eyes: Negative. Respiratory: Negative. Cardiovascular: Negative. Gastrointestinal: Negative. Endocrine: Negative. Genitourinary: Negative. Musculoskeletal: Negative. Skin: Negative. Allergic/Immunologic: Negative. Neurological: Negative. Hematological: Negative. Psychiatric/Behavioral: Negative. PAST SURGICAL HISTORY Procedure Laterality Date PAST SURGICAL HISTORY OF mole removed left wrist PAST SURGICAL HISTORY OF ESSURE 08/2007 PAST MEDICAL HISTORY Diagnosis Date Adjustment disorder with depressed mood Other and unspecified hyperlipidemia FAMILY HISTORY Problem Relation Age of Onset Cancer Father melanoma Hypertension Maternal Grandmother Social History Tobacco Use Smoking status: Former Types: Cigarettes Quit date: 05/29/2005 Years since quittin.2 Passive exposure: Never Smokeless tobacco: Never Vaping Use Vaping Use: Never used Substance Use Topics Alcohol use: No Drug use: No ALLERGIES Allergen Reactions Seasonal Allergies MEDICATIONS: rosuvastatin (CRESTOR) 10 mg tablet TAKE 1 TABLET BY MOUTH EVERY DAY escitalopram oxalate (LEXAPRO) 20 mg tablet Take 1 tablet by mouth once daily. buPROPion XL (WELLBUTRIN XL) 300 mg 24 hr tablet Take 1 tablet by mouth once daily. hydrocortisone (PROCTOCORT) 1 % cream Apply to affected area twice daily. lisinopril (ZESTRIL) 40 mg tablet Take 1 tablet by mouth once daily. metoprolol tartrate, short acting, (LOPRESSOR) 50 mg tablet Take 50 mg by mouth twice daily. amLODIPine (NORVASC) 5 mg tablet Take 5 mg by mouth once daily. OTC NUTRITIONAL SUPPLEMENT Woman's one a day multi-vitamin, Take one(1) tablet daily. VITAMIN C 500 MG CAP Take one(1) tablet daily. amphetamine-dextroampheta mine XR (ADDERALL XR) 20 mg capsule Take 1 capsule by mouth once daily for 30 days. [START ON 09/09/2023] amphetamine-dextroampheta mine XR (ADDERALL XR) 20 mg capsule Take 1 capsule by mouth once daily for 30 days. Do not start before September 09, 2023. [START ON 10/09/2023] amphetamine-dextroampheta mine XR (ADDERALL XR) 20 mg capsule Take 1 capsule by mouth once daily for 30 days. Do not start before October 09, 2023. Allergies, past surgical history, family history and past medical history were reviewed per this encounter. Medications were reviewed and verified. Objective BP 138/82 (BP Site: Left Arm, BP Position: Sitting, BP Cuff Size: Regular Adult) Pulse 68 Temp 36.4 ?C (97.6 ?F) (Temporal) Resp 18 Ht 171.5 cm (5' 7.5 ) Wt 95.3 kg (210 lb) LMP 05/26/2016 SpO2 99% BMI 32.41 kg/m? Physical Exam Vitals reviewed. Constitutional: Appearance: Normal appearance. HENT: Head: Normocephalic and atraumatic. Nose: Nose normal. Eyes: Extraocular Movements: Extraocular movements intact. Pupils: Pupils are equal, round, and reactive to light. Cardiovascular: Rate and Rhythm: Normal rate and regular rhythm. Pulmonary: Effort: Pulmonary effort is normal. Breath sounds: Normal breath sounds. Abdominal: General: Bowel sounds are normal. Palpations: Abdomen is soft. Musculoskeletal: General: Normal range of motion. Cervical back: Normal range of motion and neck supple. Skin: General: Skin is warm and dry. Capillary Refill: Capillary refill takes less than 2 seconds. Neurological: General: No focal deficit present. Mental Status: She is alert and oriented to person, place, and time. Mental status is at baseline. Psychiatric: Mood and Affect: Mood normal. Behavior: Behavior normal. Assessment and Plan Encounter Diagnosis ICD-10-CM 1. Wellness examination Z00.00 2. Screening (more content not included)... Normal [facility] CNOVon 03-11-2023 CN Office Visit ([facility] ) ----- ESTEBAN BALL ([id number]) 1980 F Date Time Provider Department 03/11/23 2:00 PM HÉCTOR LI During your visit today, we recorded the following information about you: Temperature Pulse Respiration Blood pressure 96.8 degrees 70/minute 18/minute 116/70 Weight Height 98.9 kg 1.715 m Irma Alvares LPN 03/13/2023 8:45 PM Signed Patient is in office with complaint of hemorrhoids. Patient reports symptoms are burning and itching. Patient states OTC medications and wipes were ineffective. Symptoms worse at night. Symptoms present for 2 months. No refills needed today. Irma Alvares LPN March 11, 2023 2:07 PM Héctor Li MD 03/13/2023 8:45 PM Signed This note was created using [employer]. Subjective Esteban Ball is a 43 year old female.Patient is in office with complaint of hemorrhoids. Patient reports symptoms are burning and itching. Patient states OTC medications and wipes were ineffective. Symptoms worse at night. Symptoms present for 2 months. Review of Systems Constitutional: Negative. HENT: Negative. Eyes: Negative. Respiratory: Negative. Cardiovascular: Negative. Gastrointestinal: Negative. Endocrine: Negative. Genitourinary: Negative. Musculoskeletal: Negative. Skin: Negative. Allergic/Immunologic: Negative. Neurological: Negative. Hematological: Negative. Psychiatric/Behavioral: Negative. Objective BP 116/70 (BP Site: Left Arm, BP Position: Sitting, BP Cuff Size: Large Adult) Pulse 70 Temp 36 ?C (96.8 ?F) (Temporal) Resp 18 Ht 171.5 cm (5' 7.5 ) Wt 98.9 kg (218 lb) LMP 05/26/2016 SpO2 98% BMI 33.64 kg/m? Physical Exam Vitals reviewed. Constitutional: Appearance: Normal appearance. HENT: Head: Normocephalic and atraumatic. Nose: Nose normal. Eyes: Extraocular Movements: Extraocular movements intact. Pupils: Pupils are equal, round, and reactive to light. Cardiovascular: Rate and Rhythm: Normal rate and regular rhythm. Pulmonary: Effort: Pulmonary effort is normal. Breath sounds: Normal breath sounds. Abdominal: General: Bowel sounds are normal. Palpations: Abdomen is soft. Genitourinary: Comments: Mall small external hemorrhoid to the rectum. Excoriation and perimeter of anus Musculoskeletal: General: Normal range of motion. Cervical back: Normal range of motion and neck supple. Skin: General: Skin is warm and dry. Capillary Refill: Capillary refill takes less than 2 seconds. Neurological: General: No focal deficit present. Mental Status: She is alert and oriented to person, place, and time. Mental status is at baseline. Psychiatric: Mood and Affect: Mood normal. Behavior: Behavior normal. Assessment and Plan Encounter Diagnosis ICD-10-CM 1. External hemorrhoid K64.4 Treat with Proctocort cream. Follow-up as needed. Héctor Li MD Allergies As of Date: 03/11/2023 Noted Allergy Reaction SEASONAL ALLERGIES 06/20/2010 Date Reviewed: 03/11/2023 Reviewed by: Irma Alvares LPN - Fully Assessed Reason for Visit: Rectal Problem [93] Primary Visit Diagnosis:External hemorrhoid [K64.4] Order(s):hydrocortisone (PROCTOCORT) 1 % creamApply to affected area twice daily.Disp: 35 gRfl: 0 Prescriptions as of 03/13/2023 - hydrocortisone (PROCTOCORT) 1 % cream Apply to affected area twice daily. - amphetamine-dextroampheta mine XR (ADDERALL XR) 20 mg 24 hr capsule Take 1 capsule by mouth once daily for 30 days. - amphetamine-dextroampheta mine XR (ADDERALL XR) 20 mg 24 hr capsule Take 1 capsule by mouth once daily for 30 days. Do not start before March 27, 2023. - amphetamine-dextroampheta mine XR (ADDERALL XR) 20 mg 24 hr capsule Take 1 capsule by mouth once daily for 30 days. Do not start before April 26, 2023. - lisinopril (ZESTRIL) 40 mg tablet Take 1 tablet by mouth once daily. - metoprolol tartrate, short acting, (LOPRESSOR) 50 mg tablet Take 50 mg by mouth twice daily. - rosuvastatin (CRESTOR) 10 mg tablet Take 10 mg by mouth daily at bedtime. - amLODIPine (NORVASC) 5 mg tablet Take 5 mg by mouth once daily. - escitalopram oxalate (LEXAPRO) 20 mg tablet TAKE 1 TABLET BY MOUTH EVERY DAY - buPROPion XL (WELLBUTRIN XL) 300 mg 24 hr tablet TAKE 1 TABLET BY MOUTH EVERY DAY - OTC NUTRITIONAL SUPPLEMENT Woman's one a day multi-vitamin, Take one(1) tablet daily. - VITAMIN C 500 MG CAP Take one(1) tablet daily. Problem List As Of Date 03/11/2023 Noted Resolved ADJUSTMENT DISORDER WITH DEPRESSED MOOD [F43.21] HYPERLIPIDEMIA NEC/NOS [E78.5] Attention deficit hyperactivity disorder (ADHD)*05/18/2017 Prescriptions ordered this encounter Disp Refills Start End HYDROCORTISONE 1 % TOPICAL CREAM 35 g 0 03/11/2023 Route: TOPICAL Sig: Apply to affected area twice daily. Level of Service: OFFICE/OUTPATIENT ESTABLISHED LOW MDM 20-29 MIN [28482] Enc (more content not included)... [facility] 02-25-2023 [facility] Telephone ([employer]) ----- ESTEBAN BALL ([id number]) 1980 F Date Time Provider Department 02/25/23 HÉCTOR LI During your visit today, we recorded the following information about you: Bonnie Ryan LPN 02/25/2023 11:40 AM Signed Esteban Ball called today. : 1980 Allergies: Seasonal Allergies (home) [phone] (work) [phone] (cell) Reason for call: Esteban is having problems getting her Adderall Rx. There has been issues with brand vs generic and quantity of 90 vs 30. I contacted [employer] prior authorization ([facility]) department #[phone]. They said it does not need prior authorization if it is for 30 day supply and generic. Is it okay to update the medication list to generic and Rx's for 30 day supplies? Esteban is waiting to get her medication. Patient last appointment: 02/16/2023 The patients preferred pharmacy has been captured for this encounter? Yes [facility] ROBERTA Manjarrez MD 02/25/2023 5:48 PM Signed Changed and sent. Bonnie Ryan LPN 02/26/2023 10:04 AM Signed I called and spoke with patient Esteban and told her that her generic Adderall Rx has been sent to the pharmacy for a 30 day supply with 2 more 30 day Rx's on file at [facility] for her for the next 2 refills. I explained to her that she will need to contact [facility] each month for the next refill. Esteban did voice understanding and is thankful. Bonnie Ryan LPN February 26, 2023 10:04 AM Allergies As of Date: 02/25/2023 Noted Allergy Reaction SEASONAL ALLERGIES 06/20/2010 Date Reviewed: 02/16/2023 Reviewed by: Irma Alvares LPN - Fully Assessed Reason for Visit: Medication Problem [65] Visit Diagnosis:ADHD (attention deficit hyperactivity disorder), inattentive type [F90.0] Order(s):amphetamine-dext roamphetamine XR (ADDERALL XR) 20 mg 24 hr capsuleTake 1 capsule by mouth once daily for 30 days.Disp: 30 capsuleRfl: 0 [START ON 03/27/2023] amphetamine-dextroampheta mine XR (ADDERALL XR) 20 mg 24 hr capsuleTake 1 capsule by mouth once daily for 30 days. Do not start before March 27, 2023.Disp: 30 capsuleRfl: 0 [START ON 04/26/2023] amphetamine-dextroampheta mine XR (ADDERALL XR) 20 mg 24 hr capsuleTake 1 capsule by mouth once daily for 30 days. Do not start before April 26, 2023.Disp: 30 capsuleRfl: 0 Prescriptions as of 02/26/2023 - amphetamine-dextroampheta mine XR (ADDERALL XR) 20 mg 24 hr capsule Take 1 capsule by mouth once daily for 30 days. - amphetamine-dextroampheta mine XR (ADDERALL XR) 20 mg 24 hr capsule Take 1 capsule by mouth once daily for 30 days. Do not start before March 27, 2023. - amphetamine-dextroampheta mine XR (ADDERALL XR) 20 mg 24 hr capsule Take 1 capsule by mouth once daily for 30 days. Do not start before April 26, 2023. - lisinopril (ZESTRIL) 40 mg tablet Take 1 tablet by mouth once daily. - metoprolol tartrate, short acting, (LOPRESSOR) 50 mg tablet Take 50 mg by mouth twice daily. - rosuvastatin (CRESTOR) 10 mg tablet Take 10 mg by mouth daily at bedtime. - amLODIPine (NORVASC) 5 mg tablet Take 5 mg by mouth once daily. - escitalopram oxalate (LEXAPRO) 20 mg tablet TAKE 1 TABLET BY MOUTH EVERY DAY - buPROPion XL (WELLBUTRIN XL) 300 mg 24 hr tablet TAKE 1 TABLET BY MOUTH EVERY DAY - OTC NUTRITIONAL SUPPLEMENT Woman's one a day multi-vitamin, Take one(1) tablet daily. - VITAMIN C 500 MG CAP Take one(1) tablet daily. Problem List As Of Date 02/25/2023 Noted Resolved ADJUSTMENT DISORDER WITH DEPRESSED MOOD [F43.21] HYPERLIPIDEMIA NEC/NOS [E78.5] Attention deficit hyperactivity disorder (ADHD)*05/18/2017 Prescriptions ordered this encounter Disp Refills Start End DEXTROAMPHETAMINE-AMPHETA MINE ER 20 * 30 c* 0 02/25/2023 03/27/2023 Route: ORAL Sig: Take 1 capsule by mouth once daily for 30 days. DEXTROAMPHETAMINE-AMPHETA MINE ER 20 * 30 c* 0 03/27/2023 04/26/2023 Route: ORAL Sig: Take 1 capsule by mouth once daily for 30 days. Do not start before March 27, 2023. DEXTROAMPHETAMINE-AMPHETA MINE ER 20 * 30 c* 0 04/26/2023 05/26/2023 Route: ORAL Sig: Take 1 capsule by mouth once daily for 30 days. Do not start before April 26, 2023. Medications Discontinued During This Encounter Prescriptions - amphetamine-dextroampheta mine XR (ADDERALL XR) 20 mg 24 hr capsule (Discontinued) Take 1 capsule by mouth once daily for 30 days. KEISHA (dispense as written per [employer]) Encounter Status:Closed by HÉCTOR LI on 02/25/23 [facility] CNOVraphael 02-16-2023 [facility] Office Visit (FAMMAS ) ----- ESTEBAN BALL ([id number]) 1980 F Date Time Provider Department 02/16/23 1:30 PM HÉCTOR LI During your visit today, we recorded the following information about you: Temperature Pulse Respiration Blood pressure 97.3 degrees 72/minute 18/minute 112/72 Weight Height 97.2 kg 1.715 m Irma Alvares LPN 02/16/2023 2:16 PM Signed Patient is in office for follow up for chronic medical conditions. Patient denies any concerns at this time. Irma Alvares LPN February 16, 2023 1:33 PM Héctor Li MD 02/16/2023 2:16 PM Signed This note was created using NoteWriter. Subjective Esteban Ball is a 43 year old female. Christi presents today for follow-up for multiple medical problems. See list. Her chronic medical problems have been stable. Her ADHD is well controlled on Adderall. She has no new complaints today. Review of Systems Constitutional: Negative. HENT: Negative. Eyes: Negative. Respiratory: Negative. Cardiovascular: Negative. Gastrointestinal: Negative. Endocrine: Negative. Genitourinary: Negative. Musculoskeletal: Negative. Skin: Negative. Allergic/Immunologic: Negative. Neurological: Negative. Hematological: Negative. Psychiatric/Behavioral: Negative. Objective BP 112/72 (BP Site: Left Arm, BP Position: Sitting, BP Cuff Size: Large Adult) Pulse 72 Temp 36.3 ?C (97.3 ?F) (Temporal) Resp 18 Ht 171.5 cm (5' 7.5 ) Wt 97.2 kg (214 lb 4 oz) LMP 05/26/2016 SpO2 99% BMI 33.06 kg/m? Physical Exam Vitals reviewed. Constitutional: Appearance: Normal appearance. HENT: Head: Normocephalic and atraumatic. Nose: Nose normal. Eyes: Extraocular Movements: Extraocular movements intact. Pupils: Pupils are equal, round, and reactive to light. Cardiovascular: Rate and Rhythm: Normal rate and regular rhythm. Pulmonary: Effort: Pulmonary effort is normal. Breath sounds: Normal breath sounds. Abdominal: General: Bowel sounds are normal. Palpations: Abdomen is soft. Musculoskeletal: General: Normal range of motion. Cervical back: Normal range of motion and neck supple. Skin: General: Skin is warm and dry. Capillary Refill: Capillary refill takes less than 2 seconds. Neurological: General: No focal deficit present. Mental Status: She is alert and oriented to person, place, and time. Mental status is at baseline. Psychiatric: Mood and Affect: Mood normal. Behavior: Behavior normal. Assessment and Plan Encounter Diagnosis ICD-10-CM 1. ADHD (attention deficit hyperactivity disorder), inattentive type F90.0 amphetamine-dextroampheta mine XR (ADDERALL XR) 20 mg 24 hr capsule 2. Pure hypercholesterolemia E78.00 3. Hypertension, essential I10 Continue present medication. Follow-up in 6 months. Héctor Li MD Allergies As of Date: 02/16/2023 Noted Allergy Reaction SEASONAL ALLERGIES 06/20/2010 Date Reviewed: 02/16/2023 Reviewed by: Irma Alvares LPN - Fully Assessed Reason for Visit: Follow Up [171] Primary Visit Diagnosis:ADHD (attention deficit hyperactivity disorder), inattentive type [F90.0] Other Visit Diagnoses:Pure hypercholesterolemia [E78.00] Hypertension, essential [I10] Order(s):amphetamine-dext roamphetamine XR (ADDERALL XR) 20 mg 24 hr capsuleTake 1 capsule by mouth once daily for 30 days. KEISHA (dispense as written per [facility] Insurance)Disp: 90 capsuleRfl: 0 Prescriptions as of 02/16/2023 - lisinopril (ZESTRIL) 40 mg tablet Take 1 tablet by mouth once daily. - metoprolol tartrate, short acting, (LOPRESSOR) 50 mg tablet Take 50 mg by mouth twice daily. - rosuvastatin (CRESTOR) 10 mg tablet Take 10 mg by mouth daily at bedtime. - amLODIPine (NORVASC) 5 mg tablet Take 5 mg by mouth once daily. - amphetamine-dextroampheta mine XR (ADDERALL XR) 20 mg 24 hr capsule Take 1 capsule by mouth once daily for 30 days. KEISHA (dispense as written per [employer]) - escitalopram oxalate (LEXAPRO) 20 mg tablet TAKE 1 TABLET BY MOUTH EVERY DAY - buPROPion XL (WELLBUTRIN XL) 300 mg 24 hr tablet TAKE 1 TABLET BY MOUTH EVERY DAY - OTC NUTRITIONAL SUPPLEMENT Woman's one a day multi-vitamin, Take one(1) tablet daily. - VITAMIN C 500 MG CAP Take one(1) tablet daily. Problem List As Of Date 02/16/2023 Noted Resolved ADJUSTMENT DISORDER WITH DEPRESSED MOOD [F43.21] HYPERLIPIDEMIA NEC/NOS [E78.5] Attention deficit hyperactivity disorder (ADHD)*05/18/2017 Prescriptions ordered this encounter Disp Refills Start End DEXTROAMPHETAMINE-AMPHETA MINE ER 20 * 90 c* 0 02/16/2023 03/18/2023 Route: ORAL Sig: Take 1 capsule by mouth once daily for 30 days. KEISHA (dispense as written per [employer]) Medications Discontinued During This Encounter Prescriptions - amphetamine-dextroampheta mine XR (ADDERALL XR) 20 mg 24 hr capsule (Discontinued) Take 1 capsule by mouth once daily for 30 da (more content not included)... Normal [facility] Vital Signs Date Time Vital Sign Value Performing Clinician Darieni melly 03-11-2023 14:020400 Body height 171.5 cm Héctor Li MD Work Phone: [facility] 03-11-2023 14:02-040 Body temperature 96.8 [degF] Héctor Li MD Work Phone: [facility] 03-11-2023 14:02-0400 Body weight 98.88 kg Héctor Li MD Work Phone: [facility] 03-11-2023 14:02-0400 Diastolic blood pressure 70 mm[Hg] Héctor Li MD Work Phone: [facility] 03-11-2023 14:02-0400 Heart rate 70 /min Héctor Li MD Work Phone: [facility] 03-11-2023 14:02-0400 Respiratory rate 18 /min Héctor Li MD Work Phone: [facility] 03-11-2023 14:02-0400 SaO2% (BldA) [Mass fraction] 98 % Héctor Li MD Work Phone: [facility] 03-11-2023 14:02-0400 Systolic blood pressure 116 mm[Hg] Héctor Li MD Work Phone: [facility] Encounters Encounter Date Encounter Type Care Provider Facility Start: 09-03-2023 Chart abstracting Héctor Li MD Work Phone: [facility] Comment on above: Results Start: 08-28-2023 Telephone encounter [facility] Provider [facility] General Surgery Comment on above: Returning Patient's Call (Appointment) Start: 08-11-2023 Telephone encounter Héctor Li MD Work Phone: [facility] Comment on above: APPROVED, ADDERALL X R 20 mg Start: 08-10-2023 End: 08-10-2023 ambulatory HÉCTOR LI Facility:[id number] Start: 08-10-2023 Encounter for genera l adult medical examination without abnormal findings HÉCTOR HALE JEN [facility] Start: 03-11-2023 End: 03-11-2023 ambulatory HÉCTOR LI Facility:[id number] Start: 03-11-2023 End: 03-11-2023 Office outpatient visit 15 minutes Héctor Li MD Work Phone: [facility] Comment on above: External hemorrhoid (Primary Dx) Start: 02-25-2023 Telephone encounter Héctor Li MD Work Phone: [facility] Comment on above: Medication Problem Start: 02-16-2023 End: 02-16-2023 ambulatory HÉCTOR TERRYORY JEN Facility:[id number] Start: 01-15-2023 Refill Héctor Carlson MD Work Phone: [facility] Comment on above: Refill Request Start: 12-22-2022 Refill Héctor Carlson MD Work Phone: [facility] Comment on above: Refill Request Start: 09-12-2022 Refill Héctor Carlson MD Work Phone: [facility] Comment on above: Refill Request Start: 09-05-2022 Refill Héctor Carlson MD Work Phone: [facility] Comment on above: Refill Request Start: 06-18-2022 Refill Héctor Carlson MD Work Phone: [facility] Comment on above: Refill Request Start: 06-11-2022 Refill Héctor Carlson MD Work Phone: [facility] Comment on above: Refill Request Start: 06-03-2016 End: 06-04-2016 ambulatory [facility]AND[facility] DESIGN [employer] Procedures Date Procedure Procedure Detail Performing Clinician Start: 09-03-2023 CBC/DIFF (OUTSIDE [facility]) C cf Provider Start: 09-03-2023 CMP EXTERNAL QAI [facility] Pr ovider Start: 09-03-2023 Lipid panel [facility] Provid er Start: 09-03-2023 Lipid 1995 panel - S saw or Plasma Héctor Li MD Work Phone: Start: 09-28-2011 Lipid 1996 panel - S saw or Plasma Héctor Li MD Work Phone: Plan of Treatment Date Care Activity Detail Author Start: 09-03-2028 Lipid panel Lipid Screening [facility] Start: 12-07-2026 Diabetes Screening Diabetes Screenin g [facility] Start: 08-10-2024 Annual PCP Team [employer] Worker gordy Disease Visit Annual PCP Team Chronic Disease Visit [facility] Start: 09-28-2023 Depression Assessment Depression Ass [facility] Start: 05-29-2023 Covid-19 Vaccine ( season) Covid-19 Vaccine ( season) [facility] Start: 05-29-2023 Influenza vaccination INFLUENZA (Sea son Ended) [facility] Start: 2023 COLOGUARD (FIT-DNA) COLOGUARD (FIT-D NA) [facility] Start: 2023 Colonoscopy COLONOSCOPY [facility] Start: 2023 COLORECTAL CANCER SCREENING COLORECTAL CANCER SCREENING [facility] Start: [address] COLONOGRAPHY [facility] Start: 2023 DIABETES SCREEN DIABETES SCREEN [facility] Start: 2023 Diabetes Screening Diabetes Screenin [facility] Start: 2023 FECAL OCCULT BLOOD FECAL OCCULT BLOO D [facility] Start: 2023 Lipid 1996 panel - S saw or Plasma Lipid Screening [facility] Start: 2023 LIPID SCREEN LIPID SCREEN [facility] Start: 2023 Screening for malign ant neoplasm of colon [facility] Start: 2023 SIGMOIDOSCOPY SIGMOIDOSCOPY [facility] Start: 09-28-2022 DEPRESSION ASSESSMENT DEPRESSION ASS [facility] Start: 05-29-2022 Influenza vaccination INFLUENZA (#1) [facility] Start: 09-28-2021 DEPRESSION ASSESSMENT DEPRESSION ASS [facility] Start: 09-07-2019 Screening for malign ant neoplasm of breast Mammogram Screening [facility] Start: 2018 Mammography [facility] Start: 12-03-2016 HPV TESTING HPV TESTING [facility] Start: 12-03-2016 PAP TESTING PAP TESTING [facility] Start: 1997 Hepatitis B Vaccine (1 of 3 - 19+ 3-dose series) Hepatitis B Vaccine (1 of 3 - 19+ 3-dose series) [facility] Start: 1997 Urine microalbumin profile [facility] Start: 01-14-1996 BP Controlled (<130/80) BP Controlle d (<130/80) [facility] Start: 01-14-1996 HEPATITIS C SCREENING HEPATITIS C [facility] Start: 01-14-1996 Hepatitis C screening Hepatitis C [facility] Start: 01-14-1996 HIV SCREENING HIV SCREENING [facility] Start: 01-14-1996 HIV screening HIV Screening [facility] Start: 1990 Adult depression scr eening assessment DEPRESSION SCREENING [facility] Start: 1980 COVID-19 VACCINE (#1) COVID-19 VACCI NE (#1) [facility] Start: 1980 HEPATITIS B (1 of 3 - 3-dose series) HEPATITIS B (1 of 3 - 3-dose series) [facility] Start: 1978 Hepatitis B Vaccine (1 of 3 - 3-dose series) Hepatitis B Vaccine (1 of 3 - 3-dose series) [facility] Immunizations Immunization Date Immunization Notes Care Provider Fa keith 07-29-2023 influenza, injectabl e, quadrivalent, preservative free Héctor Li MD Work Phone: [facility] 08-02-2018 influenza, injectabl e, quadrivalent, preservative free Héctor Li MD Work Phone: [facility] Payers Date Payer Category Payer Private Health Insurance [id number] 2011 Private Health Insurance [id number] Social History Date Type Detail Facility Start: 11-19-2011 End: 02-16-2023 Tobacco smoking status NHIS Ex-smoker [facility] End: 05-29-2005 History of tobacco use Current smoker [facility] End: 05-29-2005 History of tobacco use Cigarette Smoker [facility] Start: 11-19-2011 End: 02-16-2023 Tobacco use and exposure Smokeless tobacco non-user [facility] Start: 05-14-2022 End: 08-10-2023 Alcohol intake Current non-drinker of alcohol (finding) [facility] Start: 1980 Sex Assigned At Not on file [facility] Start: 05-31-2022 End: 06-10-2022 Exposure to SARS-CoV-2 (event) Not sure [facility] Start: 1980 Sex Assigned At Female C [facility] Start: 02-16-2023 End: 08-10-2023 History of Social function [facility] Start: 02-16-2023 End: 08-10-2023 [facility] Utilities [facility] Has the [employer], [employer], [employer], or water company threatened to shut off services in your home in past 12Mo No [facility] Are you now , , , , never or living with a partner? Never [facility] How often to you hav e a drink containing alcohol? Monthly or less [facility] How many standard drinks containing alcohol do you have on a typical day? 1 or 2 [facility] How often do you hav e 6 or more drinks on 1 occasion? Never [facility] How hard is it for y ou to pay for the very basics like food, housing, medical care, and heating Not hard at all [facility] Do you feel stress - tense, restless, nervous, or anxious, or unable to sleep at night because your mind is troubled all the time - these days [OSQ] Only a little [facility] (I/We) worried wheth er (my/our) food would run out before (I/we) got money to buy more. Never true [facility] Start: 07-01-2022 Gender identity Identifies as female gender (finding) [facility] NEGATED: Highlighted rowStart: NINF History of tobacco use Passive smoker [facility] Clinical Notes 06-11-2022 to 08-28-2023 Telephone Encounter - Deyanira Meyers - 08/28/2023 12:13 PM ESTTelephone Encounter - Christy Clayton MA - 08/11/2023 7:39 AM ESTTelephone Encounter - Christy Clayton MA - 08/11/2023 6:01 AM EST Note Date & Type Note Facility 08-28-2023 Miscellaneous Notes I called Isela back regarding scheduling an appointment for her Hemorrhoids. She wanted something in [place] or vicinity. I advised her to contact Dr. Li's office to find surgeon closer to home. Patient states will be on [employer] after the first of the year. documented in this encounter [facility] 08-11-2023 Miscellaneous Notes APPROVED, ADDERALL XR 20 mg Authorized from August 11, 2023 to August 10, 2024 Christy Clayton MA August 11, 2023 7:40 AM PENDING, ADDERALL XR 20 mg PA submitted in Epic Christy Clayton MA August 11, 2023 6:01 AM documented in this encounter [facility] 08-10-2023 Note HNO ID: [id number] Author: Héctor Li MD Service: ? Author Type: Physician Type: Progress Notes Filed: 08/10/2023 7:48 PM Note Text: Sayda Ball is a 43 year old female. She presents today for her annual wellness visit. She reports she is still having symptoms from her external hemorrhoids. She is requesting referral to general surgery for excision Review of Systems Constitutional: Negative. HENT: Negative. Eyes: Negative. Respiratory: Negative. Cardiovascular: Negative. Gastrointestinal: Negative. Endocrine: Negative. Genitourinary: Negative. Musculoskeletal: Negative. Skin: Negative. Allergic/Immunologic: Negative. Neurological: Negative. Hematological: Negative. Psychiatric/Behavioral: Negative. PAST SURGICAL HISTORY Procedure Laterality Date PAST SURGICAL HISTORY OF mole removed left wrist PAST SURGICAL HISTORY OF ESSURE 08/2007 PAST MEDICAL HISTORY Diagnosis Date Adjustment disorder with depressed mood Other and unspecified hyperlipidemia FAMILY HISTORY Problem Relation Age of Onset Cancer Father melanoma Hypertension Maternal Grandmother Social History Tobacco Use Smoking status: Former Types: Cigarettes Quit date: 05/29/2005 Years since quittin.2 Passive exposure: Never Smokeless tobacco: Never Vaping Use Vaping Use: Never used Substance Use Topics Alcohol use: No Drug use: No ALLERGIES Allergen Reactions Seasonal Allergies MEDICATIONS: rosuvastatin (CRESTOR) 10 mg tablet TAKE 1 TABLET BY MOUTH EVERY DAY escitalopram oxalate (LEXAPRO) 20 mg tablet Take 1 tablet by mouth once daily. buPROPion XL (WELLBUTRIN XL) 300 mg 24 hr tablet Take 1 tablet by mouth once daily. hydrocortisone (PROCTOCORT) 1 % cream Apply to affected area twice daily. lisinopril (ZESTRIL) 40 mg tablet Take 1 tablet by mouth once daily. metoprolol tartrate, short acting, (LOPRESSOR) 50 mg tablet Take 50 mg by mouth twice daily. amLODIPine (NORVASC) 5 mg tablet Take 5 mg by mouth once daily. OTC NUTRITIONAL SUPPLEMENT Woman's one a day multi-vitamin, Take one(1) tablet daily. VITAMIN C 500 MG CAP Take one(1) tablet daily. amphetamine-dextroamphetamine XR (ADDERALL XR) 20 mg capsule Take 1 capsule by mouth once daily for 30 days. [START ON 09/09/2023] amphetamine-dextroamphetamine XR (ADDERALL XR) 20 mg capsule Take 1 capsule by mouth once daily for 30 days. Do not start before September 09, 2023. [START ON 10/09/2023] amphetamine-dextroamphetamine XR (ADDERALL XR) 20 mg capsule Take 1 capsule by mouth once daily for 30 days. Do not start before October 09, 2023. Allergies, past surgical history, family history and past medical history were reviewed per this encounter. Medications were reviewed and verified. Objective BP 138/82 (BP Site: Left Arm, BP Position: Sitting, BP Cuff Size: Regular Adult) Pulse 68 Temp 36.4 ?C (97.6 ?F) (Temporal) Resp 18 Ht 171.5 cm (5' 7.5 ) Wt 95.3 kg (210 lb) LMP 05/26/2016 SpO2 99% BMI 32.41 kg/m? Physical Exam Vitals reviewed. Constitutional: Appearance: Normal appearance. HENT: Head: Normocephalic and atraumatic. Nose: Nose normal. Eyes: Extraocular Movements: Extraocular movements intact. Pupils: Pupils are equal, round, and reactive to light. Cardiovascular: Rate and Rhythm: Normal rate and regular rhythm. Pulmonary: Effort: Pulmonary effort is normal. Breath sounds: Normal breath sounds. Abdominal: General: Bowel sounds are normal. Palpations: Abdomen is soft. Musculoskeletal: General: Normal range of motion. Cervical back: Normal range of motion and neck supple. Skin: General: Skin is warm and dry. Capillary Refill: Capillary refill takes less than 2 seconds. Neurological: General: No focal deficit present. Mental Status: She is alert and oriented to person, place, and time. Mental status is at baseline. Psychiatric: Mood and Affect: Mood normal. Behavior: Behavior normal. Assessment and Plan Encounter Diagnosis ICD-10-CM 1. Wellness examination Z00.00 2. Screening for depression Z13.31 DEPRESSION SCREENING/ASSESSMENT 3. ADHD (attention deficit hyperactivity disorder), inattentive type F90.0 amphetamine-dextroamphetamine XR (ADDERALL XR) 20 mg capsule amphetamine-dextroamphetamine XR (ADDERALL XR) 20 mg capsule amphetamine-dextroamphetamine XR (ADDERALL XR) 20 mg capsule 4. Pure hypercholesterolemia E78.00 COMP METABOLIC PANEL LIPID PANEL BASIC 5. Hypertension, essential I10 COMP METABOLIC PANEL 6. Screening for deficiency anemia Z13.0 CBC + DIFF 7. External hemorrhoid K64.4 CONSULT TO GENERAL SURGERY All open preventative health maintenance topics discussed with patient in detail. This includes risks and benefits regarding vaccines, cancer screening, healthy life style, and diet. Consult to surgery for evaluation of hemorrhoidectomy. Héctor Li MD [facility] 08-10-2023 Note HNO ID: [id number] Author: Lynette Krishnamurthy LPN Service: ? Author Type: LICENSED NURSE Type: Progress Notes Filed: 08/10/2023 7:48 PM Note Text: Patient in the office today for an annual Wellness exam. Health Maintenance Due: Hepatitis B Vaccine(1 of 3 - 3-dose series) declined Covid-19 Vaccine(1) declined Hepatitis C Screening declined HIV Screening declined DTaP,Tdap,Td Vaccine(1 - Tdap) declined Pap Testing Dr. Rosalie Bess HPV Testing Dr. Rosalie Bess Mammogram Screening Dr. Rosalie Bess Lipid Screening Diabetes Screening Colorectal Cancer Screening Lynette Krishnamurthy LPN August 10, 2023 1:49 PM [facility] 03-13-2023 Note HNO ID: [id number] Author: Héctor Li MD Service: ? Author Type: Physician Type: Progress Notes Filed: 03/13/2023 8:45 PM Note Text: This note was created using NoteWriter. Sayda Ball is a 43 year old female.Patient is in office with complaint of hemorrhoids. Patient reports symptoms are burning and itching. Patient states OTC medications and wipes were ineffective. Symptoms worse at night. Symptoms present for 2 months. Review of Systems Constitutional: Negative. HENT: Negative. Eyes: Negative. Respiratory: Negative. Cardiovascular: Negative. Gastrointestinal: Negative. Endocrine: Negative. Genitourinary: Negative. Musculoskeletal: Negative. Skin: Negative. Allergic/Immunologic: Negative. Neurological: Negative. Hematological: Negative. Psychiatric/Behavioral: Negative. Objective BP 116/70 (BP Site: Left Arm, BP Position: Sitting, BP Cuff Size: Large Adult) Pulse 70 Temp 36 ?C (96.8 ?F) (Temporal) Resp 18 Ht 171.5 cm (5' 7.5 ) Wt 98.9 kg (218 lb) LMP 05/26/2016 SpO2 98% BMI 33.64 kg/m? Physical Exam Vitals reviewed. Constitutional: Appearance: Normal appearance. HENT: Head: Normocephalic and atraumatic. Nose: Nose normal. Eyes: Extraocular Movements: Extraocular movements intact. Pupils: Pupils are equal, round, and reactive to light. Cardiovascular: Rate and Rhythm: Normal rate and regular rhythm. Pulmonary: Effort: Pulmonary effort is normal. Breath sounds: Normal breath sounds. Abdominal: General: Bowel sounds are normal. Palpations: Abdomen is soft. Genitourinary: Comments: Mall small external hemorrhoid to the rectum. Excoriation and perimeter of anus Musculoskeletal: General: Normal range of motion. Cervical back: Normal range of motion and neck supple. Skin: General: Skin is warm and dry. Capillary Refill: Capillary refill takes less than 2 seconds. Neurological: General: No focal deficit present. Mental Status: She is alert and oriented to person, place, and time. Mental status is at baseline. Psychiatric: Mood and Affect: Mood normal. Behavior: Behavior normal. Assessment and Plan Encounter Diagnosis ICD-10-CM 1. External hemorrhoid K64.4 Treat with Proctocort cream. Follow-up as needed. Héctor Li MD [facility] 03-13-2023 History of Presen t illness Narrative This note was created using NoteWriter. Subjective Esteban Ball is a 43 year old female.Patient is in office with complaint of hemorrhoids. Patient reports symptoms are burning and itching. Patient states OTC medications and wipes were ineffective. Symptoms worse at night. Symptoms present for 2 months. Review of Systems Constitutional: Negative. HENT: Negative. Eyes: Negative. Respiratory: Negative. Cardiovascular: Negative. Gastrointestinal: Negative. Endocrine: Negative. Genitourinary: Negative. Musculoskeletal: Negative. Skin: Negative. Allergic/Immunologic: Negative. Neurological: Negative. Hematological: Negative. Psychiatric/Behavioral: Negative. Objective BP 116/70 (BP Site: Left Arm, BP Position: Sitting, BP Cuff Size: Large Adult) Pulse 70 Temp 36 C (96.8 F) (Temporal) Resp 18 Ht 171.5 cm (5' 7.5 ) Wt 98.9 kg (218 lb) LMP 05/26/2016 SpO2 98% BMI 33.64 kg/m Physical Exam Vitals reviewed. Constitutional: Appearance: Normal appearance. HENT: Head: Normocephalic and atraumatic. Nose: Nose normal. Eyes: Extraocular Movements: Extraocular movements intact. Pupils: Pupils are equal, round, and reactive to light. Cardiovascular: Rate and Rhythm: Normal rate and regular rhythm. Pulmonary: Effort: Pulmonary effort is normal. Breath sounds: Normal breath sounds. Abdominal: General: Bowel sounds are normal. Palpations: Abdomen is soft. Genitourinary: Comments: Mall small external hemorrhoid to the rectum. Excoriation and perimeter of anus Musculoskeletal: General: Normal range of motion. Cervical back: Normal range of motion and neck supple. Skin: General: Skin is warm and dry. Capillary Refill: Capillary refill takes less than 2 seconds. Neurological: General: No focal deficit present. Mental Status: She is alert and oriented to person, place, and time. Mental status is at baseline. Psychiatric: Mood and Affect: Mood normal. Behavior: Behavior normal. Assessment and Plan Encounter Diagnosis ICD-10-CM 1. External hemorrhoid K64.4 Treat with Proctocort cream. Follow-up as needed. Héctor Li MD Patient is in office with complaint of hemorrhoids. Patient reports symptoms are burning and itching. Patient states OTC medications and wipes were ineffective. Symptoms worse at night. Symptoms present for 2 months. No refills needed today. Irma Alvares LPN March 11, 2023 2:07 PM documented in this encounter [facility] 03-11-2023 Note HNO ID: [id number] Author: Irma Alvares LPN Service: ? Author Type: LICENSED NURSE Type: Progress Notes Filed: 03/13/2023 8:45 PM Note Text: Patient is in office with complaint of hemorrhoids. Patient reports symptoms are burning and itching. Patient states OTC medications and wipes were ineffective. Symptoms worse at night. Symptoms present for 2 months. No refills needed today. Irma Alvares LPN March 11, 2023 2:07 PM [facility] 02-25-2023 Miscellaneous Notes Changed and sent. Esteban Ball called today. : 1980 Allergies: Seasonal Allergies (home) [phone] (work) [phone] (cell) Reason for call: Esteban is having problems getting her Adderall Rx. There has been issues with brand vs generic and quantity of 90 vs 30. I contacted [facility] prior authorization ([facility]) department ph#[phone]. They said it does not need prior authorization if it is for 30 day supply and generic. Is it okay to update the medication list to generic and Rx's for 30 day supplies? Esteban is waiting to get her medication. Patient last appointment: 02/16/2023 The patients preferred pharmacy has been captured for this encounter? Yes KATHARINA Ryan LPN documented in this encounter [facility] 02-16-2023 Note HNO ID: [id number] Author: Héctor Li MD Service: ? Author Type: Physician Type: Progress Notes Filed: 02/16/2023 2:16 PM Note Text: This note was created using TradeBlock[employer]. Subjective Esteban Ball is a 43 year old female. Christi presents today for follow-up for multiple medical problems. See list. Her chronic medical problems have been stable. Her ADHD is well controlled on Adderall. She has no new complaints today. Review of Systems Constitutional: Negative. HENT: Negative. Eyes: Negative. Respiratory: Negative. Cardiovascular: Negative. Gastrointestinal: Negative. Endocrine: Negative. Genitourinary: Negative. Musculoskeletal: Negative. Skin: Negative. Allergic/Immunologic: Negative. Neurological: Negative. Hematological: Negative. Psychiatric/Behavioral: Negative. Objective BP 112/72 (BP Site: Left Arm, BP Position: Sitting, BP Cuff Size: Large Adult) Pulse 72 Temp 36.3 ?C (97.3 ?F) (Temporal) Resp 18 Ht 171.5 cm (5' 7.5 ) Wt 97.2 kg (214 lb 4 oz) LMP 05/26/2016 SpO2 99% BMI 33.06 kg/m? Physical Exam Vitals reviewed. Constitutional: Appearance: Normal appearance. HENT: Head: Normocephalic and atraumatic. Nose: Nose normal. Eyes: Extraocular Movements: Extraocular movements intact. Pupils: Pupils are equal, round, and reactive to light. Cardiovascular: Rate and Rhythm: Normal rate and regular rhythm. Pulmonary: Effort: Pulmonary effort is normal. Breath sounds: Normal breath sounds. Abdominal: General: Bowel sounds are normal. Palpations: Abdomen is soft. Musculoskeletal: General: Normal range of motion. Cervical back: Normal range of motion and neck supple. Skin: General: Skin is warm and dry. Capillary Refill: Capillary refill takes less than 2 seconds. Neurological: General: No focal deficit present. Mental Status: She is alert and oriented to person, place, and time. Mental status is at baseline. Psychiatric: Mood and Affect: Mood normal. Behavior: Behavior normal. Assessment and Plan Encounter Diagnosis ICD-10-CM 1. ADHD (attention deficit hyperactivity disorder), inattentive type F90.0 amphetamine-dextroamphetamine XR (ADDERALL XR) 20 mg 24 hr capsule 2. Pure hypercholesterolemia E78.00 3. Hypertension, essential I10 Continue present medication. Follow-up in 6 months. Héctor Li MD [facility] 02-16-2023 Note HNO ID: [id number] Author: Irma Alvares LPN Service: ? Author Type: LICENSED NURSE Type: Progress Notes Filed: 02/16/2023 2:16 PM Note Text: Patient is in office for follow up for chronic medical conditions. Patient denies any concerns at this time. Irma Alvares LPN February 16, 2023 1:33 PM [facility] 01-15-2023 Miscellaneous Notes Pharmacy [email or web address] message requesting the following refill. Requested Prescriptions Pending Prescriptions Disp Refills amphetamine-dextroamphetamine XR (ADDERALL XR) 20 mg 24 hr capsule 30 capsule 0 Sig: Take 1 capsule by mouth once daily for 30 days. KEISHA (dispense as written per [facility]) Patient last appointment: 01/08/2022 She asked for a ninety day supply. I called and left a voice mail message letting patient know that she is overdue for an appointment with Dr Li Patient Phone numbers: [phone] (home) [phone] (work) Request is for script(s) to be escript to [facility] pharmacy. Bonnie Ryan LPN documented in this encounter [facility] 09-12-2022 Miscellaneous Notes Pharmacy [email or web address] message requesting the following refill. Requested Prescriptions Pending Prescriptions Disp Refills escitalopram oxalate (LEXAPRO) 20 mg tablet [Pharmacy Med Name: ESCITALOPRAM 20 MG TABLET] 90 tablet 3 Sig: TAKE 1 TABLET BY MOUTH EVERY DAY buPROPion XL (WELLBUTRIN XL) 300 mg 24 hr tablet [Pharmacy Med Name: BUPROPION HCL XL 300 MG TABLET] 90 tablet 3 Sig: TAKE 1 TABLET BY MOUTH EVERY DAY Patient last appointment: 09/05/2022 Patient Phone numbers: [phone] (home) [phone] (work) Request is for script(s) to be escript to [facility] pharmacy. Bonnie Ryan LPN documented in this encounter [facility] 06-11-2022 Miscellaneous Notes Requested Prescriptions Pending Prescriptions Disp Refills amphetamine-dextroamphetamine XR (ADDERALL XR) 20 mg 24 hr capsule 30 capsule 0 Sig: Take 1 capsule by mouth once daily for 30 days. amphetamine-dextroamphetamine XR (ADDERALL XR) 20 mg 24 hr capsule 30 capsule 0 Sig: Take 1 capsule by mouth once daily for 30 days. Do not start before July 11, 2022. amphetamine-dextroamphetamine XR (ADDERALL XR) 20 mg 24 hr capsule 30 capsule 0 Sig: Take 1 capsule by mouth once daily for 30 days. Do not start before August 10, 2022. Lynette Krishnamurthy LPN June 11, 2022 10:13 AM documented in this encounter [facility] Evaluation note Diagnosis ADHD (attention deficit hyperactivity disorder), inattentive type- Primary Attention deficit disorder without mention of hyperactivity [facility] Diagnosis ADHD (attention deficit hyperactivity disorder), inattentive type Attention deficit disorder without mention of hyperactivity [facility] Diagnosis ADHD (attention deficit hyperactivity disorder), inattentive type Attention deficit disorder without mention of hyperactivity [facility] Diagnosis External hemorrhoid- Primary External hemorrhoids without mention of complication documented in this encounter [facility] Summary Purpose Family History No Family History Records FoundNo Family History Records Found Advance Directives No Advanced Directives Records FoundNo Advanced Directives Records Found Additional Source Comments Source Comments (unrecognize d section and content) In the event this informatio n is protected by the Federal Confidentiality of Alcohol and Drug Abuse Patient Records regulations: The Federal rules restrict any use of the information to criminally investigate or prosecute any alcohol or drug abuse patient.[facility] the event this information is protected by the Federal Confidentiality of Alcohol and Drug Abuse Patient Records regulations: The Federal rules restrict any use of the information to criminally investigate or prosecute any alcohol or drug abuse patient.[facility] the event this information is protected by the Federal Confidentiality of Alcohol and Drug Abuse Patient Records regulations: The Federal rules restrict any use of the information to criminally investigate or prosecute any alcohol or drug abuse patient.[facility] the event this information is protected by the Federal Confidentiality of Alcohol and Drug Abuse Patient Records regulations: The Federal rules restrict any use of the information to criminally investigate or prosecute any alcohol or drug abuse patient.[facility] the event this information is protected by the Federal Confidentiality of Alcohol and Drug Abuse Patient Records regulations: The Federal rules restrict any use of the information to criminally investigate or prosecute any alcohol or drug abuse patient.[facility] the event this information is protected by the Federal Confidentiality of Alcohol and Drug Abuse Patient Records regulations: The Federal rules restrict any use of the information to criminally investigate or prosecute any alcohol or drug abuse patient.[facility] the event this information is protected by the Federal Confidentiality of Alcohol and Drug Abuse Patient Records regulations: The Federal rules restrict any use of the information to criminally investigate or prosecute any alcohol or drug abuse patient.[facility] the event this information is protected by the Federal Confidentiality of Alcohol and Drug Abuse Patient Records regulations: The Federal rules restrict any use of the information to criminally investigate or prosecute any alcohol or drug abuse patient.[facility] the event this information is protected by the Federal Confidentiality of Alcohol and Drug Abuse Patient Records regulations: The Federal rules restrict any use of the information to criminally investigate or prosecute any alcohol or drug abuse patient.[facility] the event this information is protected by the Federal Confidentiality of Alcohol and Drug Abuse Patient Records regulations: The Federal rules restrict any use of the information to criminally investigate or prosecute any alcohol or drug abuse patient.[facility] the event this information is protected by the Federal Confidentiality of Alcohol and Drug Abuse Patient Records regulations: The Federal rules restrict any use of the information to criminally investigate or prosecute any alcohol or drug abuse patient.[facility] Reason for Visit (unrecogniz ed section and content) Reason Onset Date Comments Refill Request 06/11/2022 Reason Onset Date Comments Refill Request 06/18/2022 Reason Comments Refill Request Reason Onset Date Comments Refill Request 01/15/2023 Reason Comments Medication Problem Reason Comments Rectal Problem Reason Comments APPROVED, ADDERALL XR 20 mg Reason Comments Returning Patient's Call Appointment Reason Comments Results Care Teams (unrecognized sec tion and content) Fish Conservationist Relationship Specialty Start Date End Date Pcp, No PCP - General 04/12/22 10/28/22 Fish Conservationist Relationship Specialty Start Date End Date Pcp, No PCP - General 04/12/22 10/28/22 Fish Conservationist Relationship Specialty Start Date End Date Pcp, No PCP - General 04/12/22 10/28/22 Fish Conservationist Relationship Specialty Start Date End Date Pcp, No PCP - General 04/12/22 10/28/22 Fish Conservationist Relationship Specialty Start Date End Date Héctor Li MD [address] [place] [address] PCP - General Family [facility] 01/15/23 Fish Conservationist Relationship Specialty Start Date End Date Héctor Li MD [address] [place] [address] PCP - General [facility] 01/15/23 Fish Conservationist Relationship Specialty Start Date End Date Héctor Li MD [address] [place] [address] PCP - [facility] 01/15/23 Fish Conservationist Relationship Specialty Start Date End Date Héctor Li MD [address] [place] [address] PCP - [facility] 01/15/23 INFORMATION SOURCE (unrecogn ized section and content) DATE CREATED AUTHOR 03/06/2023 [facility] DATE CREATED AUTHOR AUTHOR'S PITER ALVARADO 08/31/2023 [facility] Ce nter FOR RECORDS PERTAINING TO PATIENTS WHO ARE OR HAVE BEEN ENROLLED IN A CHEMICAL DEPENDENCY/SUBSTANCEABUSE PROGRAM, SOME INFORMATION MAY BE OMITTED. This clinical summary was aggregated from multiple sources. Caution should be exercised in using it in the provision of clinical care. This summary normalizes information from multiple sources, and as a consequence, information in this document may materially change the coding, format and clinical context of patient data. In addition, data may be omitted in some cases. CLINICAL DECISIONS SHOULD BE BASED ON THE PRIMARY CLINICAL RECORDS. [employer] provides no warranty or guarantee of the accuracy or completeness of information in this document.
== END | disposition home or self-care (01) ==
PROVIDERS: PCP Internal Medicine; Referring Provider Internal Medicine; Visit Provider Internal Medicine
DX: Z51.81 Encounter for therapeutic drug level monitoring (principal)
CPT/HCPCS: 80307

== ENCOUNTER 2024-10-06 09:35 | Emergency (ER) | payer OTHER, SELFPAY ==
[2024-10-06 09:37] VITALS: PULSE 67; RESP 18; TEMP 36.1; O2SAT 100; BMI 30.2
[2024-10-06 09:38] VITALS: BP 118/48
--- NOTE | 2024-10-06 10:09 | RAD_ITS ---
HISTORY: Crackles right lower lobe, illness x 2 weeks. TECHNIQUE: XR Chest 2 Views. COMPARISON: None. FINDINGS: CARDIOMEDIASTINAL BORDERS: Cardiac silhouette within normal limits in size. Mediastinal contour unremarkable. LUNGS: Radiographically clear. PLEURA: No pleural effusion or pneumothorax seen. OSSEOUS STRUCTURES: Unremarkable. RAD/Chest PA and Lateral IMPRESSION: No acute cardiopulmonary process identified. Electronically Signed: Trudy Wu MD at 10:35 EST ,
--- NOTE | 2024-10-06 10:32 | EX.ED.DYSGE1 ---
HPI History of Present Illness Chief Complaint: Cold Sx Detail of Chief Complaint: Cold-like symptoms that started before [place]. Informant: patient Onset/Context/Timing Onset: Weeks Context: Sudden Onset Timing: Continuous and Waxes and wanes Quality: Initially upper respiratory tract symptoms with productive cough now change Location: Upper respiratory Current Severity: Mild Maximum Severity: Moderate Worsened by: Talking Relieved by: Not talking Associated Symptoms Associated Symptoms: Change in voice and mild respiratory symptoms Narrative Narrative: Patient is a 44-year-old woman. She does vape. She denies fever, chills or night sweats. She initially had more congestion and apparently had tenderness over the right maxillary sinus when seen at urgent care. Since she has had change in voice. Her cough has essentially resolved. She denies dyspnea or dyspnea on exertion. She denies postnasal drainage. She denies sputum production. She denies abdominal pain, nausea, vomiting or diarrhea. She denies myalgias or arthralgias. 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 She denies headache, photophobia, neck pain or neck stiffness. She denies history of VTE. She has no risk factors for VTE. She denies leg pain, swelling or discoloration. Prior similar symptoms: Yes Recent Illness/Hospitalization: No PFSH [facility] Medical History Medication monitoring encounter Pain, joint, hand, right Pain in deltoid Left knee pain GERD (gastroesophageal reflux disease) Insomnia Health care maintenance Hyperlipidemia Anxiety and depression Colon cancer screening Encounter for Essure implantation ADD (attention deficit disorder) High triglycerides High blood cholesterol Cubital tunnel syndrome Back problem Hypertension Encounter for Essure implantation Depression ADHD Home Medications ?Medication ?Instructions ?Recorded ?Last Taken ?Type amlodipine 5 mg tablet 5 mg PO DAILY #90 tabs 10/08/23 Unknown Rx metoprolol tartrate 50 mg tablet 50 mg PO BID #180 tabs 10/08/23 Unknown Rx (Lopressor) triamcinolone acetonide 0.1 % 1 applic topical DAILY 14 days #30 02/18/24 Unknown Rx topical cream grams meloxicam 15 mg tablet 15 mg PO DAILY PRN pain #30 tabs 04/25/24 Unknown Rx trazodone 50 mg tablet 50 mg PO QHS PRN insomnia #60 tabs 06/03/24 Unknown Rx bupropion HCl 300 mg 24 hr tablet, 300 mg PO QHS #90 tabs 09/01/24 Unknown Rx extended release escitalopram oxalate 20 mg tablet 20 mg PO QHS #90 tabs 09/01/24 Unknown Rx rosuvastatin 5 mg tablet 5 mg PO DAILY #90 tabs 09/01/24 Unknown Rx doxycycline monohydrate 100 mg 100 mg PO BID #10 CAPSULES 10/06/24 Unknown Rx capsule Allergy/AdvReac Type Severity Reaction Status Date / Time cat dander Allergy Mild Other Verified 10/06/24 09:36 house dust Allergy Mild sneezing Verified 10/06/24 09:36 Seasonal Allergies: Uncoded Allergy Mild Itching Verified 10/06/24 09:36 Family History Mother CVA (cerebral vascular accident) Hypertension Father Hyperlipidemia Melanoma Surgical History History of total vaginal hysterectomy (TVH) History of removal of skin mole Cubital tunnel syndrome on right Social History (Updated 10/06/24 @ 10:[address] 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 It is not pleuritic. ; Denies arthralgias, myalgias or neck pain Integumentary Denies rash Neurologic Neurologic: Denies headache(s) Hematologic/Lymphatic Hematologic/Lymphatic: Denies easy bruising EXAM Physical Exam Const Vital Signs: 10/06/24 09:37 10/06/24 09:38 Temperature 97 F L Temperature Source Temporal Pulse Rate 67 Respiratory Rate 18 Blood Pressure 118/48 L Blood Pressure Mean 71 Pulse Ox 100 Oxygen Delivery Method Room Air Positive well nourished and well developed Constitutional Narrative: Vital signs reveal slightly decreased blood pressure. Otherwise vitals are unremarkable. General Appearance ED: well developed and NAD; Negative for pallor HEENT Reports moist mucous membranes HEENT Narrative: Posterior pharynx is normal. Uvula is midline. There is no deviation with protrusion. Ears are normal. External auditory canal is normal. TMs are normal bilaterally. There is no tenderness over the frontal or maxillary sinus to percussion. There is no abnormality noted of the nasal mucosa or septum. Eyes PERRL and EOMs intact bilaterally General Eye ED: Negative for pale conjunctiva or scleral icterus Neck no lymphadenopathy, supple and no JVD Neck Narrative: Trachea is midline. She does have a hoarse voice. There is no inspiratory or expiratory stridor. Resp normal respiratory effort and clear to auscultation bilaterally Resp Narrative: There is egophony right lower lobe. There is no true increased vocal fremitus. Auscultation: rales right lower Cardio regular rate, regular rhythm, S1 normal heart sound, S2 normal heart sound and no murmurs GI normal to inspection, nondistended, normoactive bowel sounds and non-tender Extremity normal to inspection General Extremety ED: Negative for edema or tenderness General Extremity: Negative for edema Neuro oriented x3 and CN's II-XII intact bilaterally Sensorium / Orientation: alert Psych mental status grossly normal Skin no rashes or lesions noted, no wounds and skin turgor normal General Skin Exam: Negative for jaundice or pallor MDM MDM MDM Narrative Medical decision making narrative: With patient having a hoarse voice, abnormal findings on auscultation suggestive of pneumonia and the fact that she has been ill for greater than 2 weeks will obtain chest x-ray. This may represent a viral infection. This may represent a bacterial infection. Based on patient's age and vitals laboratory testing was not obtained per port criteria. Patient is PERC negative. Wells score is less than 3. DVT was considered but ruled out in light of negative PERC and Wells score. History and physical is not consistent with CHF, pneumothorax or aortic dissection. Rapid antigen was not obtained since she has been sick for over 2 and half weeks and there is no treatment options for influenza, RSV or COVID at this point. Radiography Chest X-Ray - ED: 2 View, Read by ED Physician (Independently reviewed interpreted by me at 1031. There is no comparison.), Normal, Heart, Lungs, Mediastinum, Bony Structures and No Acute Disease Treatment and Re-Evaluation :: Because patient has been ill for greater than 2 weeks and clinically she has pneumonia even though not noted on x-ray will place on short course of doxycycline to cover atypicals as well as typical organisms. Discharge Plan Triage Chief Complaint: Cold Sx ED Provider: Adriel White Dx/Rx/DC Orders Clinical Impression: Pneumonia, Hyperlipidemia, GERD (gastroesophageal reflux disease), Hypertension Instructions: ED Pneumonia (Adult) Prescriptions: New doxycycline monohydrate 100 mg capsule 100 mg PO BID Qty: 10 0RF No Action metoprolol tartrate [Lopressor] 50 mg tablet 50 mg PO BID Qty: 180 3RF amlodipine 5 mg tablet 5 mg PO DAILY Qty: 90 3RF meloxicam 15 mg tablet 15 mg PO DAILY PRN (Reason: pain) Qty: 30 1RF triamcinolone acetonide 0.1 % cream 1 applic topical DAILY 14 Days Qty: 30 1RF Rx Instructions: apply to affected area daily trazodone 50 mg tablet 50 mg PO QHS PRN (Reason: insomnia) Qty: 60 2RF escitalopram oxalate 20 mg tablet 20 mg PO QHS Qty: 90 0RF rosuvastatin 5 mg tablet 5 mg PO DAILY Qty: 90 0RF bupropion HCl 300 mg tablet extended release 24 hr 300 mg PO QHS Qty: 90 0RF Primary Care Provider: Opal Yarbrough Referrals: Opal Yarbrough MD [Primary Care Provider] - 1 Week if not improving Print Language: Nepali Disposition Disposition: Home, Self Care
[2024-10-06 10:55] VITALS: BP 121/59; PULSE 70; RESP 18; TEMP 36.8; O2SAT 98
== END 2024-10-06 10:56 | disposition home or self-care (01) ==
PROVIDERS: Emergency Provider Emergency Medicine; PCP Internal Medicine; Visit Provider Emergency Medicine
DX: J18.9 Pneumonia, unspecified organism (principal); I10 Essential (primary) hypertension; K21.9 Gastro-esophageal reflux disease without esophagitis; E78.00 Pure hypercholesterolemia, unspecified; Z79.899 Other long term (current) drug therapy; F41.9 Anxiety disorder, unspecified; Z90.710 Acquired absence of both cervix and uterus; F17.290 Nicotine dependence, other tobacco product, uncomplicated
CPT/HCPCS: 71046; 99282

== ENCOUNTER → 2024-10-10 | Outpatient (CLI) | payer OTHER, SELFPAY ==
[2024-10-10 15:53] LABS: Absolute Lymphocyte Count 2.39 X10^3/uL (0.83-4.51); Basophil# 0.06 X10^3/uL; Basophil% 0.6 % (0-1); Eosinophil# 0.39 X10^3/uL; Eosinophils% 3.7 % (0-5); Hematocrit 42.9 % (37-47); Hemoglobin 14.3 g/dL (12.0-15.0); Lymphocyte # 2.39 X10^3/ul (0.83-4.51); Lymphocyte % 22.5 % (19-41); Mean Corp Hgb Conc 33.3 g/dL (32-36); Mean Corpuscular Hgb 29.7 pg (27.0-32.0); Mean Corpuscular Volume 89.2 fL (81-99); Mean Platelet Vol. 10.1 fl (6.2-12.0); Monocyte# 0.58 X10^3/uL; Monocyte% 5.5 % (0-10); NRBC Flagged by Analyzer 0 % (0-5); Neutrophil # 6.99 X10^3/uL (2.7-7.7); Neutrophil % 65.8 % (47-70); Platelet Count 286 K/mm3 (150-450); RBC Distribution Width CV 12.8 % (11.6-14.6); RBC Distribution Width SD 41.9 fl (35.1-43.9); Red Blood Count 4.81 M/mm3 (4.2-5.4); White Blood Count 10.6 K/mm3 (4.4-11.0)
[2024-10-10 16:36] LABS: ALB/GLOB Ratio 0.8 RATIO (0.9-2.4); AST(SGOT) 9 U/L (15-37); Alanine Aminotransfer ALT/SGPT 17 U/L (13-56); Albumin, Serum 3.6 g/dL (3.2-5.0); Alkaline Phosphatase 89 U/L (45-117); Anion Gap 3 (5-15); BUN 11 mg/dL (7-18); BUN/Creat Ratio 15.7 RATIO (10-20); Calcium,Total 8.9 mg/dL (8.5-10.1); Chloride 105 mmol/L (98-107); EST Glomerular Filtration Rate 95 mL/min (>60); Est Glom Filt Rate - Afr Amer 115 mL/min (>60); Globulin 4.4 g/dL (2.2-4.2); Glucose 87 mg/dL (74-106); Potassium 3.6 mmol/L (3.5-5.1); Sodium Level 136 mmol/L (136-145)
== END | disposition home or self-care (01) ==
LOC: BIMLAB 13:29
PROVIDERS: PCP Internal Medicine; Referring Provider Internal Medicine; Visit Provider Internal Medicine
DX: B34.9 Viral infection, unspecified (principal)

== ENCOUNTER → 2024-10-14 | Outpatient (CLI) | payer OTHER, SELFPAY ==
--- NOTE | 2024-10-14 08:54 | RAD_ITS ---
INDICATION: Cough, Chest Pain EXAMINATION/TECHNIQUE: X-RAY - XR Chest 2 Views COMPARISON: 10/06/2024 FINDINGS: LIFE-SUPPORT AND LINES: 1. None HEART AND VESSELS: The cardiac silhouette, pulmonary vasculature have normal appearance. No evidence of congestive failure. LUNGS AND PLEURAL SPACES: Lungs are clear. No focal infiltrate, consolidation or effusions. No evidence of pneumothorax. No pulmonary mass is noted. MEDIASTINUM AND HILAR REGIONS: No masses adenopathy noted. No areas of calcification. Visualized upper airway is normal in position. BONY ELEMENTS: No acute bony changes noted. RAD/Chest PA and Lateral IMPRESSION: 1. No evidence of acute cardiopulmonary process Electronically Signed: Du Persaud MD at 17:29 EST ,
== END | disposition home or self-care (01) ==
LOC: MTRAD 08:54
PROVIDERS: PCP Internal Medicine; Referring Provider Internal Medicine; Visit Provider Internal Medicine
DX: R07.89 Other chest pain (principal); R05.9 Cough, unspecified
CPT/HCPCS: 71046

== ENCOUNTER → 2025-02-06 | Outpatient (CLI) | payer OTHER, SELFPAY ==
--- NOTE | 2025-02-06 13:45 | BI_ITS ---
EXAM: SCRN MAMM (CAD)W/KARRI BILAT DATE: 02/06/2025 CLINICAL HISTORY: F, Age 45 y/o , BREAST CANCER SCREENING BREAST CANCER RISK ASSESSMENT: Has not been calculated. TECHNIQUE: Bilateral screening digital breast tomosynthesis with 2D and 3D images. Computer aided detection. COMPARISON: Prior exam(s) dated 09/07/2018. FINDINGS: TISSUE DENSITY: The breast tissue is composed of scattered area of fibroglandular density. Bilateral Breast Mammographic Findings: There is a 6 mm partially obscured isodense mass in the superior, middle 3rd aspect of the left breast. Further workup is indicated. There are no suspicious masses, suspicious cluster of microcalcifications, architectural distortion or secondary signs of malignancy identified in the right breast. BI/SCRN MAMM (CAD)W/KARRI BILAT IMPRESSION: OVERALL FINAL ASSESSMENT: BIRADS 0 Incomplete: Need additional imaging evaluati on and/or prior mammograms for comparison. RECOMMENDATION: Incomplete: Need additional imaging evaluation. There is a 6 mm partially obscu red isodense mass in the superior, middle 3rd aspect of the left breast. Further workup is indicated. Patient should return for an LM view of the left breast as well as spot compression CC and spot compression MLO view of the left breast mass. An ultra sound may also be needed. A letter with findings and recommendations will be mailed to the patient. Reading Location: [id number]
--- NOTE | 2025-02-06 13:55 | RAD_ITS ---
PROCEDURE: L/S SPINE MIN 4 VIEWS 02/06/2025 REASON FOR EXAM: CHRONIC BACK PAIN TECHNIQUE: Five views; AP, bilateral oblique, lateral and coned-down L5-S1 COMPARISON: None available FINDINGS: 5 [id number] lumbar vertebral body types identified. For nomenclature purposes there is a lumbarized S1 segment. No fracture or malalignment. No evidence of spondylolysis. L5-S1 [id number] disc space narrowing with degenerative endplate changes and mild appearing foraminal narrowing suggested. Lower lumbar facet degenerative changes. RAD/L/S Spine Min 4 Views IMPRESSION: For nomenclature purposes there is a lumbarized S1 segment. L5-S1 spondylosis/ discogenic change as above. Reading Location: [id number]
== END | disposition home or self-care (01) ==
PROVIDERS: PCP Internal Medicine; Referring Provider Internal Medicine; Visit Provider Internal Medicine
DX: Z12.31 Encounter for screening mammogram for malignant neoplasm of breast (principal)
CPT/HCPCS: 72110; 77063; 77067

== ENCOUNTER → 2025-02-13 | Outpatient (CLI) | payer OTHER, SELFPAY | END | disposition home or self-care (01) | LOC: PSN 06:53 | PROVIDERS: PCP Internal Medicine; Referring Provider Internal Medicine; Visit Provider Internal Medicine | DX: R06.2 Wheezing (principal) | CPT/HCPCS: 94060; 94726; 94729 ==

== ENCOUNTER → 2025-02-15 | Outpatient (CLI) | payer OTHER, SELFPAY ==
--- NOTE | 2025-02-15 12:26 | BI_ITS ---
EXAM: BREAST COMPLETE UNILATERAL; DIAG MAMM W/CAD, UNILAT; LT BRST UNILAT KARRI ADD ON N/A; 02/15/2025 CLINICAL HISTORY: 45-year-old female presents for follow-up of the left breast findings seen on the examination of 02/06/2025. No family history of breast cancer. TECHNIQUE: Left diagnostic digital breast tomosynthesis with 2D and 3D images. Computer aided detection. Also targeted left breast ultrasound was performed COMPARISON: Prior exam(s) dated 02/06/2025, 09/07/2018. FINDINGS: MAMMOGRAM: TISSUE DENSITY: The breast tissue is composed of scattered area of fibroglandular density. Left breast Mammographic Findings: Follow-up examination performed for the mass in the left breast seen on examination of 02/06/2025. On the present examination, the mass in the central left breast at middle depth persist. ULTRASOUND: Ultrasound performed of the left breast demonstrates a cyst in the retroareolar region measuring 0.7 x 0.6 x 0.3 cm. This is an appropriate correlate for the mammographic finding. Otherwise, there are no suspicious sonographic findings seen in the left breast. BI/Lt Brst Unilat Karri Add On IMPRESSION: Benign left breast cyst. OVERALL FINAL ASSESSMENT: BIRADS 2 BENIGN FINDING. RECOMMENDATION: Routine annual follow-up in 1 Year A letter with findings and recommendations will be mailed to the patient. Reading Location: [id number]
--- NOTE | 2025-02-15 12:26 | BI_ITS ---
EXAM: BREAST COMPLETE UNILATERAL; DIAG MAMM W/CAD, UNILAT; LT BRST UNILAT KARRI ADD ON N/A; 02/15/2025 CLINICAL HISTORY: 45-year-old female presents for follow-up of the left breast findings seen on the examination of 02/06/2025. No family history of breast cancer. TECHNIQUE: Left diagnostic digital breast tomosynthesis with 2D and 3D images. Computer aided detection. Also targeted left breast ultrasound was performed COMPARISON: Prior exam(s) dated 02/06/2025, 09/07/2018. FINDINGS: MAMMOGRAM: TISSUE DENSITY: The breast tissue is composed of scattered area of fibroglandular density. Left breast Mammographic Findings: Follow-up examination performed for the mass in the left breast seen on examination of 02/06/2025. On the present examination, the mass in the central left breast at middle depth persist. ULTRASOUND: Ultrasound performed of the left breast demonstrates a cyst in the retroareolar region measuring 0.7 x 0.6 x 0.3 cm. This is an appropriate correlate for the mammographic finding. Otherwise, there are no suspicious sonographic findings seen in the left breast. BI/DIAG MAMM W/CAD, UNILAT IMPRESSION: Benign left breast cyst. OVERALL FINAL ASSESSMENT: BIRADS 2 BENIGN FINDING. RECOMMENDATION: Routine annual follow-up in 1 Year A letter with findings and recommendations will be mailed to the patient. Reading Location: [id number]
== END | disposition home or self-care (01) ==
LOC: OPBI 12:23
PROVIDERS: PCP Internal Medicine; Referring Provider Internal Medicine; Visit Provider Internal Medicine
DX: N60.02 Solitary cyst of left breast (principal)
CPT/HCPCS: 76641; 77061; 77065; G0279

== ENCOUNTER → 2025-05-31 | Outpatient (CLI) | payer OTHER, SELFPAY ==
--- NOTE | 2025-05-31 09:26 | MRI_ITS ---
PROCEDURE: SPINE LUMBAR (ROUTINE) 05/31/2025 REASON FOR EXAM: WORSENING PAIN X4 MONTHS, RADICULOPATHY TECHNIQUE: Procedure Code: MRISPL Modality: MR Procedure: SPINE LUMBAR (ROUTINE) COMPARISON: Radiograph from 05/11/2025 FINDINGS: Bone marrow signal is grossly unremarkable aside from discogenic endplate signal changes at L4-L5 and benign increased T2 signal at L2. The conus is noted posterior to T12. There is degenerative disc space narrowing at L4-5 and L5-S1. The paravertebral soft tissues are grossly within normal limits aside from what is likely a right renal cyst on image 30, series 12, although motion artifact limits evaluation. L1-2: Unremarkable L2-3: Unremarkable L3-4: There may be a tiny annular tear in the central zone on image 20, series 12. Minimal concentric disc bulge without significant stenosis. L4-5: Minimal concentric disc bulge. No stenosis. L5-S1: There is a minimal right foraminal zone protrusion on image 8, series 12. No significant stenosis. Sacrum: Unremarkable Minimal degenerative disc disease as detailed above. No significant stenosis. Reading [facility]
== END | disposition home or self-care (01) ==
LOC: MRI 09:17
PROVIDERS: PCP Internal Medicine; Referring Provider Student in an Organized Health Care Education/Training Program; Visit Provider Student in an Organized Health Care Education/Training Program
DX: M54.16 Radiculopathy, lumbar region (principal); G89.29 Other chronic pain; M51.362 Other intervertebral disc degeneration, lumbar region with discogenic back pain and lower extremity pain
CPT/HCPCS: 72148

== ENCOUNTER 2025-06-12 14:30 | Outpatient (RCR) | payer OTHER, SELFPAY ==
--- NOTE | 2025-05-12 13:00 | HP.PTEVAL ---
Patient's Visit Information Visit Information Visit Information: ESTEBAN BALL is a 45 year old F referred to Physical Therapy by Dr. Andrea Mai MD with a diagnosis of SPONDYLOSIS LUMBOSACRAL REGION W/O RADICULOPATHY. Date of Evaluation: 05/12/25 Physical Therapist: Jas Kim, PT, Cert MDT, OCS Visit Plan Frequency: 2x /Week Duration: 4 Weeks Plan: PT INTERVENTIONS DLS ,POSTURAL EX'S ,LE FLEXABILITY ,ACTIVITY MODIFICATION AND MODALITIES FOR PAIN Subjective Subjective: This 45 y/o female presents to physical therapy with lumbar radiculopathy. Patient has had lumbar pain since HS ~ 1994 MRI showed HNP lumbar. Overall years increase pain which has been intermittent . Then 8 years ago pain return had epidural injection then was better. Most recently ,pain increased thus had 2 epidural injection last 05/05 which did not help. Patient then was referred to [facility] recommended PT x-rays showed X-rays show a disc height loss most noticeable at L4-5 and L5-S1. No acute fractures. Medication Cymbalta . Location of pain intermittent symmetrical ache . Aggravating AM ,Bending ,lifting ,walking and standing . Alleviating rest.Coughing/sneezing-. Bowel/bladder. Pain can affects sleeping. Patient has had PT in past made symptoms worse. No h/o trauma . Patient condition affects QOL and function .Goals to decrease pain. Patient seen chiropractor SOCAIL: SINGLE VOACTION: [facility] Pain Bilateral Back: Pain Intensity (Out of 10): 1 Pain Intensity Range: 10 Objective Objective: POSTURE: WFL GAIT: reciprocal pattern PALAPTION: unremarkable NEURO: denies paresthesia/tingling ,reflexes L3-4,L4-5 ,L5-S1 2/3 FLEXABILITY: hamstrings min tight MMT: quads/hams 4/5 ,hip flexion 4/5 ankle 4/5 LUMBAR ROM: flexion mod loss pain ,extension ,mod loss pain,side glides mod loss Special Tests L/S Slump test left side: Negative L/S Slump test right side: Negative L/S Left Straight Leg Raise: Negative L/S Right Straight Leg Raise: Negative Lumbar Standing: Flexion - Mechanical Response: No effect Lumbar Standing: Flexion - Symptoms During Testing: Increases Lumbar Standing: Flexion - Symptoms After Testing: No worse Lumbar Standing: Extension - Mechanical Response: No effect Lumbar Standing: Extension - Symptoms During Testing: Increases Lumbar Standing: Extension - Symptoms After Testing: Worse Lumbar Standing: Right Side Glides - Mechanical Response: No effect Lumbar Standing: Right Side [place] - Symptoms During Testing: No effect Lumbar Standing: Right Side [place] - Symptoms After Testing: No effect Lumbar Standing: Left Side [place] - Mechanical Response: No effect Lumbar Standing: Left Side [place] - Symptoms During Testing: No effect Lumbar Standing: Left Side [place] - Symptoms After Testing: No effect Lumbar Lying: Flexion - Mechanical Response: No effect Lumbar Lying: Flexion - Symptoms During Testing: Increases Lumbar Lying: Flexion - Symptoms After Testing: No worse Lumbar Lying: Extension - Mechanical Response: No effect Lumbar Lying: Extension - Symptoms During Testing: Increases Lumbar Lying: Extension - Symptoms After Testing: No worse Balance/Special Test Scores Oswestry Low Back Score: 32 Goals Goal 1:: Patient to be I with HEP for back Goal Time Frame: 4-6 Weeks Goal 2:: Patient to improve lumbar ROM for function of recovery for job demands Goal Time Frame: 4-6 Weeks Goal 3:: Patient to improve back oswestry score by 5 points to improve QOL Goal Time Frame: 4-6 Weeks Goal 4:: Patient to demonstrate 50% improvement with less pain and improved function Goal Time Frame: 4-6 Weeks Goal 5:: Patient able to stand/walk with less pain > 15-20mins Goal Time Frame: 4-6 Weeks Rehabilitation Potential Physical Therapy Diagnosis: This patient has lumbar pain with H/O HNP with pain with motion testing and positioning ,worse with waling/standing bending thus benefit from skilled PT Rehabilitation Potential: Good Anticipated Interventions Patient/Client Instruction: Educate patient on: Condition and Plan of Care For the Purpose of:: To decrease pain, To increase ROM, To improve muscle performance and motor function, To improve ability to perform ADL's, To increase tolerance to activity/condition/position, To improve ability of physical actions for home/community/work/leisure, To improve health of tissue, To decrease soft tissue restriction, To increase flexibility/ROM and To improve tolerance to ADL's Therapeutic Exercise to Include: Strength training, Postural training, Flexibilty training and Dynamic Lumbar Stabilization For the Purpose of:: To decrease pain, To increase ROM, To improve muscle performance and motor function, To improve ability to perform ADL's, To increase tolerance to activity/condition/position, To improve ability of physical actions for home/community/work/leisure, To improve health of tissue, To decrease soft tissue restriction, To increase flexibility/ROM and To improve tolerance to ADL's TENS: Yes IF ES: Yes Cryotherapy (ice pack, ice massage): Yes Thermo therapy (hot pack): Yes Ultrasound (thermal/non thermal): Yes For the Purpose of:: To decrease pain, To increase ROM, To improve nutrient delivery to tissue, To increase oxygenation perfusion, To improve health of tissue and To decrease soft tissue restriction Text: Thank you for the opportunity to evaluate your patient. For Medicare and Medicare HMO plans, please review the plan of care and approve it. It will need to be FAXED BACK to us at [phone] for Medicare purposes. For Medicare only, by signing this I certify the plan of care. Please let me know if there are questions or concerns regarding this plan of care. Physician Signature: Date:
--- NOTE | 2025-06-12 15:21 | HP.PTDCSUM ---
Discharge Summary D/C summary: It has been my pleasure to treat ESTEBAN BALL referred by Dr. Andrea Mai MD, with the diagnosis of SPONDYLOSIS LUMBOSACRAL REGION W/O RADICULOPATHY for a total of 8 visit(s). Discharge Date: 06/12/25 Please see the following information for a summary of their discharge status. Subjective Subjective: Seems PT not helping RD 06/26 Pain Bilateral Back: Pain Intensity (Out of 10): 4 Overall Improvement % Improvement: 30 Objective Objective/Function: POSTURE: WFL GAIT: reciprocal pattern PALAPTION: unremarkable NEURO: denies paresthesia/tingling ,reflexes L3-4,L4-5 ,L5-S1 2/3 FLEXABILITY: hamstrings min tight MMT: quads/hams 4/5 ,hip flexion 4/5 ankle 4/5 LUMBAR ROM: flexion mod loss pain ,extension ,mod loss pain,side glides mod loss Goals Goal 1:: Patient to be I with HEP for back Goal Progress: Goal Met Goal 2:: Patient to improve lumbar ROM for function of recovery for job demands Goal Progress: Progressing Goal 3:: Patient to improve back oswestry score by 5 points to improve QOL Goal Progress: Progressing Goal 4:: Patient to demonstrate 50% improvement with less pain and improved function Goal Progress: Progressing Goal 5:: Patient able to stand/walk with less pain > 15-20mins Goal Progress: Progressing Plan Plan: D/C D/C Information Discharge Comments: RTD d/c sentence: If there are questions or concerns regarding this patient's physical therapy, please feel free to call me at [phone]. Thank you for the referral of this patient. Sincerely, Jas Kim, PT, Cert MDT, OCS Balance/Gait/Functional tests Balance/Special Test Scores Oswestry Low Back Score: 32 Improvement % Improvement: 30
== END 2025-06-12 19:00 | disposition home or self-care (01) ==
LOC: PT 14:30
PROVIDERS: PCP Internal Medicine; Referring Provider Anesthesiology Pain Medicine; Visit Provider Anesthesiology Pain Medicine
DX: M47.817 Spondylosis without myelopathy or radiculopathy, lumbosacral region (principal); M51.372 Other intervertebral disc degeneration, lumbosacral region with discogenic back pain and lower extremity pain
CPT/HCPCS: 97014; 97110; 97162; 97530; G0283